=== PATIENT | male | born 1970 | race Caucasian/White ===

== ENCOUNTER 2017-06-07 08:03 | Inpatient (IN) | payer OTHER ==
--- NOTE | 2017-06-07 08:47 | PDOC ---
Attending Attestation - Resident Resident Name: Corey Ferreira - ED Attending Attestation I have performed the following: I have examined & evaluated the patient, The case was reviewed & discussed with the resident, I agree w/resident's findings & plan, Exceptions are as noted - HPI HPI: 06/07/17 08:44 47y M hx of htn, hl asthma presents with complaint of sob. Per girlfriend, the pt has been having fever and cough for about a week with alot of congestion. GF also with similar symptoms last week. Pt endorses worsening sob, and gf finally convinced him to come to the ED today. Pt denies any chest pain, leg swelling, hemoptysis, dizziness, abd pain, n/v. pt arrived with sat of 60% on RA, in mild distress, was started on NRB with improvement to 80%, started on bipap with improvement to 94% (on 04/22, 75% O2). Pts pulm exam noted for scant rales at the bsaes and deminshed breathsounds b/l abd soft notnender ddx includes pna, influenza, ?consier PE, ?underlying lung/heart dz? sepsis orderset initiated cxr continue bipap will reassess 06/07/17 10:52 The pts labs were reviweed - cmp noted for: Laboratory Tests 06/07/17 06/07/17 06/07/17 08:10 08:10 09:30 Sodium 127 L Potassium 3.6 Chloride 94 L Carbon Dioxide 20 L Anion Gap 13 BUN 42 H Creatinine 2.1 H Creat Clearance w eGFR 34.02 Random Glucose 136 H Lactic Acid 2.1 H Calcium 7.2 L Total Bilirubin 1.0 AST 869 H ALT 326 H Alkaline Phosphatase 180 H Ammonia 75.5 H Creatine Kinase 6546 H Creatine Kinase Index 0.0 CK-MB (CK-2) < 1.0 Troponin I 0.06 H Total Protein 7.1 Albumin 2.4 L MICHAEL, elevated LFTs, trop at .06 - ?CHF - awaitqing BNP pt doing well on bipap will obtain cxr to r/o infiltrate as his cxr shows a very large espana - congestion vs. pna pt on abx 06/07/17 12:01 pts bnp wnl unclear etiology - will obtain CTA of chest pt admitted to ICU for further management 06/07/17 16:13 CRITICAL CARE DOCUMENTATION: I spent ~120 minutes of Critical Care time, excluding separately billable procedures, involving high complexity decision making to assess, manipulate and support vital system function(s) to treat single or multiple vital organ system failure and/or to prevent further life threatening deterioration of the patient' s condition. - Medical Decision Making 06/07/17 16:14 pt stable on bipap but quickly desaturates when bipap taken off ct shows ?edema ?ARDS? low threshold for intubation cards/pulm consulted Heart Score/ECG Review - ECG Impressions Comment:: 06/07/17 12:39 Twelve-lead EKG was performed and reviewed by me. There is normal sinus rhythm with a rate of 110 Nonspecific T wave abnormality
[2017-06-07] MEDS ORDERED: SODIUM CHLORIDE 0.9% 1000 ML INFUS.BAG IV ONE ×2 (08:59→10:51)
[2017-06-07 09:07] LABS: ARTERIAL BLD GAS O2 SATURATION 88.1 % (90-98.9); ARTERIAL BLOOD GAS BASE EXCESS -2.7 meq/l (-2-2); ARTERIAL BLOOD GAS PCO2 24.3 mmHg (35-45); ARTERIAL BLOOD GAS PO2 54.8 mmHg (80-100); ARTERIAL BLOOD GAS pH 7.49 (7.35-7.45); CARBOXYHEMOGLOBIN 1.6 gm% (0.5-2.0)
[2017-06-07] MEDS ORDERED: ACETAMINOPHEN 1000 MG/100 ML VIAL (NON FORMULARY) IVPB ONE (09:07)
[2017-06-07 09:08] LABS: BASO % 0.6 % (0-2.0); HEMATOCRIT 40.9 % (35.4-49); HEMOGLOBIN 13.8 GM/dL (11.7-16.9); LYMPH % 7.3 % (8-40); MCH 30.7 pg (25.7-33.7); MCHC 33.6 g/dl (32.0-35.9); MEAN CELL VOLUME 91.3 fl (80-96); MEAN PLT VOLUME 8.2 fl (7.5-11.1); MONO % 7.8 % (3.8-10.2); NEUT % 84.3 % (42.8-82.8); PLATELET COUNT 258 K/MM3 (134-434); RBC 4.48 M/mm3 (4.00-5.60); RDW 13.2 % (11.9-15.9); WHITE BLOOD COUNT 11.4 K/mm3 (4.0-10.0)
[2017-06-07] MEDS ORDERED: ACETAMINOPHEN INJECTION 100 ML IVPB ONE (09:08)
[2017-06-07 09:09] LABS: VENOUS PC02 30.8 mmHg (38-52); VENOUS PH 7.44 (7.32-7.42)
[2017-06-07 09:10] LABS: VENOUS PO2 35.3 mmHg (28-48)
[2017-06-07 09:13] LABS: ALLENS TEST POSITIVE
[2017-06-07 09:35] LABS: INR 1.16 (0.82-1.09); PROTHROMBIN TIME (PATIENT) 13.1 SEC (9.98-11.88)
[2017-06-07 09:38] LABS: ACTIVATED PTT 31.2 SECONDS (26.9-34.4)
[2017-06-07 09:53] LABS: ALBUMIN 2.4 g/dl (3.4-5.0); ANION GAP 13 (8-16); BLOOD UREA NITROGEN 42 mg/dL (7-18); CALCIUM 7.2 mg/dL (8.5-10.1); CHLORIDE 94 mmol/L (98-107); CO2 20 mmol/L (21-32); CREATININE 2.1 mg/dL (0.7-1.3); GLUCOSE,RANDOM 136 mg/dL (74-106); POTASSIUM 3.6 mmol/L (3.5-5.1); SGPT/ALT 326 U/L (12-78); SODIUM 127 mmol/L (136-145); TOT PROT 7.1 g/dl (6.4-8.2)
[2017-06-07] MEDS ORDERED: PIPERACILLIN/TAZOB 4.5 GM/100 ML PRE-DOCKED IVPB ONE (09:59)
[2017-06-07] MEDS ORDERED: VANCOMYCIN 1,000 MG in DEXTROSE 5%-WATER - 250 ML IVPB ONE (09:59)
[2017-06-07 10:05] LABS: ALK PHOS 180 U/L (45-117)
--- NOTE | 2017-06-07 10:11 | PDOC ---
History of Present Illness - General Chief Complaint: Shortness of Breath Stated Complaint: FEVER,DIFFICULTY BREATHING,HIGH BLOOD PRESSURE Time Seen by Provider: 06/07/17 08:24 History Source: Patient Exam Limitations: No Limitations - History of Present Illness Initial Comments: 06/07/17 10:08 The patient is a 47M with a PMH of HTN, asthma, and EtOH abuse who presents to the ED with complaints of "feeling sick". The patient is accompanied with his fiance who is a nurse and providing some of the history. The patient states that he's been coughing for 1 week, has had fevers and chills. The fiance states that the patient has also been delusional and talking to himself. He denies any CP, SOB, nausea, vomiting, myalgias, abdominal pain. The patient drinks 3-4 beers a day and a pint of liquor. He has not had a drink in 8 days since he's been sick. He was seen at an on Thursday (5 days ago) and was given amoxicillin and told to get evaluated in the ER because of his breathing, but he did not until he presented this morning. Past History - Past Medical History Allergies/Adverse Reactions: Allergies Allergy/AdvReac Type Severity Reaction Status Date / Time No Known Allergies Allergy Verified 06/07/17 08:18 Home Medications: Ambulatory Orders Aspirin 81 mg PO DAILY 06/07/17 Atorvastatin Ca [Lipitor] 20 mg PO HS 06/07/17 Benzonatate 200 mg PO DAILY PRN 06/07/17 Chlorthalidone 25 mg PO DAILY 06/07/17 Metoprolol Succinate 25 mg PO DAILY 06/07/17 Paroxetine HCl [Paxil] 20 mg PO DAILY 06/07/17 Simvastatin 40 mg PO HS 06/07/17 Asthma: Yes COPD: No HTN: Yes Other medical history: alcohol abuse - Suicide/Smoking/Psychosocial Hx Smoking History: Current every day smoker Number of Cigarettes Smoked Daily: 20 Information on smoking cessation initiated: No Substance Use Type: Alcohol Review of Systems - Review of Systems Able to Perform ROS?: Yes Comments:: 06/07/17 10:37 GENERAL/CONSTITUTIONAL: Positive for fevers and chills. No weakness. HEAD, EYES, EARS, NOSE AND THROAT: No change in vision. No ear pain or discharge. No sore throat. GASTROINTESTINAL: No nausea, vomiting, diarrhea, constipation, or abdominal pain. GENITOURINARY: No dysuria, frequency, hematuria, or change in urination. CARDIOVASCULAR: No chest pain, palpitations, or lightheadedness. RESPIRATORY: Positive for cough. No wheezing, shortness of breath, or hemoptysis. MUSCULOSKELETAL: Positive for back pain. No joint or muscle swelling or pain. SKIN: No rash or lesions. NEUROLOGIC: No headache, numbness, tingling, weakness, loss of consciousness, or change in strength/sensation. ENDOCRINE: No increased thirst. No abnormal weight change. HEMATOLOGIC/LYMPHATIC: No anemia, easy bleeding, or history of blood clots. ALLERGIC/IMMUNOLOGIC: No hives or skin allergy. Is the patient limited Salvadorean proficient: No *Physical Exam - Vital Signs Last Vital Signs Temp Pulse Resp BP Pulse Ox 102.5 F H 92 H 24 110/73 96 06/07/17 09:05 06/07/17 09:52 06/07/17 09:52 06/07/17 09:52 06/07/17 09:52 - Physical Exam Comments: 06/07/17 10:40 GENERAL: Well developed, well nourished. Awake and alert. No acute distress. HEENT: Normocephalic, atraumatic. Hearing grossly normal. Moist mucous membranes. PERRLA, EOMI. No conjunctival pallor. Sclera are mildly icteric. Oropharynx is clear. NECK: Supple. Full ROM. No JVD. CARDIOVASCULAR: Regular rate and rhythm. No murmurs, rubs, or gallops. PULMONARY: No evidence of respiratory distress. Mild rales in LL lobe. ABDOMINAL: Soft. Non-tender. Non-distended. No rebound or guarding. GENITOURINARY: No CVA tenderness bilaterally. MUSCULOSKELETAL: Normal range of motion at all joints. No bony deformities or tenderness. EXTREMITIES: No cyanosis. No clubbing. No edema. No calf tenderness. SKIN: Warm and dry. Normal capillary refill. No rashes. No jaundice. NEUROLOGICAL: Alert, awake, appropriate. Cranial nerves 2-12 intact. Normal speech. Gait is normal without ataxia. PSYCHIATRIC: Cooperative. Good eye contact. Appropriate mood and affect. ED Treatment Course - LABORATORY CBC & Chemistry Diagram: 06/07/17 08:10 06/07/17 09:30 - ADDITIONAL ORDERS Additional order review: Laboratory Results 06/07/17 06/07/17 06/07/17 09:00 08:20 08:10 PT with INR INR PTT (Actin FS) Puncture Site Left radial ABG pH 7.49 H ABG pCO2 at Pt Temp 24.3 L ABG pO2 at Pt Temp 54.8 L ABG HCO3 18.5 L ABG O2 Sat (Measured) 88.1 L ABG O2 Content 17.8 ABG Base Excess -2.7 L Grant Test Positive VBG pH POC VBG pCO2 POC VBG pO2 Mixed VBG HCO3 Carboxyhemoglobin 1.6 Methemoglobin 0.9 O2 Delivery Device Bipap Oxygen Flow Rate 75% Vent Mode S/t Vent Rate 10 Mechanical Rate Bipap Pressure Support Vent 12/6 Lactic Acid 2.1 H Ammonia Blood Type A POSITIVE Antibody Screen Negative 06/07/17 06/07/17 06/07/17 08:10 08:10 08:10 PT with INR 13.10 H INR 1.16 H PTT (Actin FS) 31.2 Puncture Site ABG pH ABG pCO2 at Pt Temp ABG pO2 at Pt Temp ABG HCO3 ABG O2 Sat (Measured) ABG O2 Content ABG Base Excess Grant Test VBG pH 7.44 H POC VBG pCO2 30.8 L POC VBG pO2 35.3 Mixed VBG HCO3 20.7 Carboxyhemoglobin Methemoglobin O2 Delivery Device Oxygen Flow Rate Vent Mode Vent Rate Mechanical Rate Pressure Support Vent Lactic Acid Ammonia 75.5 H Blood Type Antibody Screen 06/07/17 08:10 RBC 4.48 MCV 91.3 MCHC 33.6 RDW 13.2 MPV 8.2 Neutrophils % 84.3 H Lymphocytes % 7.3 L Monocytes % 7.8 Eosinophils % 0.0 Basophils % 0.6 - RADIOLOGY Radiology Studies Ordered: Category Date Time Status CHEST X-RAY PORTABLE* [RAD] Stat Radiology 06/07/17 08:37 Completed - Medications Given in the ED: ED Medications Discontinued Medications Generic Name Dose Route Start Last Admin Trade Name Freq PRN Reason Stop Dose Admin Acetaminophen 1,000 mg 06/07/17 09:07 06/07/17 09:12 Ofirmev Injection - IVPB 06/07/17 09:08 1,000 mg ONCE ONE Administration Piperacillin Sod/Tazobactam Sod 4.5 gm 06/07/17 09:59 06/07/17 10:06 Zosyn 4.5gm Ivpb (Pre-Docked) IVPB 06/07/17 10:00 4.5 gm ONCE ONE Administration Sodium Chloride 1,000 ml 06/07/17 08:59 06/07/17 09:12 Normal Saline - IV 06/07/17 09:00 1,000 ml ONCE ONE Administration Medical Decision Making - Medical Decision Making 06/07/17 10:41 The patient is a 47M with a PMH of HTN and asthma who presents to the ER with a cough, fever, and back pain. He was found to be hypoxic to 55-60's on RA. I placed the patient on bipap and his saturation improved to the low 90's. The patient also had a fever of 102.5. Septic protocol is being followed. CXR shows congestive changes with questionable infiltrate. I have covered the patient with broad spectrum abx and given 1 g of tylenol for fever control. Patient is tolerating bipap well. Will monitor closely. 06/07/17 10:54 I have endorsed the patient to Dr. José who accepts admission to an ICU bed. Will page Dr. Weeks, machine operator cane cutter. 06/07/17 11:[address] Quezada for ICU admission. He agrees and would like Dr. Rodríguez consulted for ID. Pending CT chest for patient. 06/07/17 14:45 CT chest read: Extensive bilateral upper and lower lung field interstitial and alveolar opacities are noted with a preferential posterior involvement. The CT pattern is more suggestive of interstitial and alveolar edema (cardiogenic versus noncardiogenic) and probably less likely on the basis of pneumonitis. Correlate clinically. Extensive atherosclerotic coronary artery calcifications are seen. Possible mild left ventricular dilatation. Pt is continuing to desaturate off bipap. His fiance is removing his mask to give him water. I have instructed her not to do this as it is compensating his O2 sats. *DC/Admit/Observation/Transfer Diagnosis at time of Disposition: Hypoxia Congestive cardiac failure Qualifiers: Congestive heart failure type: unspecified Congestive heart failure chronicity : unspecified Qualified Code(s): I50.9 - Heart failure, unspecified - Discharge Dispostion Condition at time of disposition: Guarded Admit: Yes - Referrals - Patient Instructions - Post Discharge Activity
[2017-06-07] MEDS ORDERED: PIPERACILLIN/TAZOB 4.5 GM 4.5 GM/100 ML BAG IVPB ONE (10:15)
[2017-06-07 10:29] LABS: SGOT/AST 869 U/L (15-37)
[2017-06-07] MEDS ORDERED: VANCOMYCIN 1 GRAM (PRE-DOCKED) 1,000 MG/250 ML BAG IVPB ONE (10:49)
[2017-06-07 11:42] LABS: N-TERMINAL BNP 107.08 pg/ml (5-125)
[2017-06-07 13:32] LABS: URINE APPEARANCE SLCLOUDY; URINE BILIRUBIN NEGATIVE (NEGATIVE); URINE BLOOD 3+ (NEGATIVE); URINE COLOR YELLOW; URINE GLUCOSE (UA) NEGATIVE (NEGATIVE); URINE KETONE NEGATIVE (NEGATIVE); URINE LEUK ESTERASE NEGATIVE (NEGATIVE); URINE NITRITE NEGATIVE (NEGATIVE); URINE UROBILINOGEN NEGATIVE mg/dL (0.2-1.0)
[2017-06-07 13:39] LABS: URINE PROTEIN 2+ (NEGATIVE)
[2017-06-07 13:44] LABS: URINE HYALINE CAST 1 /lpf; URINE MUCUS RARE
[2017-06-07 14:25] LABS: COCAINE, UR NEGATIVE ng/ml (CUTOFF=300); METHADONE, UR NEGATIVE ng/ml (CUTOFF=300); OPIATES, URI NEGATIVE ng/ml (CUTOFF=300); PHENCYCLIDINE,URINE NEGATIVE ng/ml (CUTOFF=25); URINE AMPHETAMINES NEGATIVE ng/ml (CUTOFF=500); URINE BARBITURATES NEGATIVE ng/ml (CUTOFF=200); URINE BENZODIAZEPINES NEGATIVE ng/ml (CUTOFF=200)
[2017-06-07] MEDS ORDERED: OSELTAMIVIR PHOSPHATE 75 MG CAPSULE PO ONE (15:16)
[2017-06-07] MEDS ORDERED: LEVOFLOXACIN 750 MG IVPB 750 MG/150 ML BAG IVPB ONE (15:21)
--- NOTE | 2017-06-07 15:34 | CONSULT ---
Consult Consult Specialty:: PULM/CCM Referred by:: SURAJ Reason for Consultation:: SOB - History of Present Illness Chief Complaint: SOB History of Present Illness: 47 M, previous ETOH abuse (stopped 1 week ago), active smoker, no IVDU, no clear occupational exposure history. (+) Flu contact -> daughter. Reports never screened for HIV. No apparent travel history. No hemoptysis. Called to the ER due to severe hypoxic acute respiratory failure. Awake and alert on NIPPV. 80% FiO2 with a saturation of 95%. CT: ARDS pattern with areas of consolidation. - History Source History Provided By: Patient Limitations to Obtaining History: Poor Historian - Past Medical History Pulmonary: Yes: Asthma, Sleep Apnea. No: COPD, Pneumonia, Previously Intubated , Pulmonary Embolus - Smoking History Smoking history: Current every day smoker Aproximately how many cigarettes per day: 20 Home Medications - Allergies Allergies/Adverse Reactions: Allergies Allergy/AdvReac Type Severity Reaction Status Date / Time No Known Allergies Allergy Verified 06/07/17 08:18 - Home Medications Home Medications: Ambulatory Orders Aspirin 81 mg PO DAILY 06/07/17 Atorvastatin Ca [Lipitor] 20 mg PO HS 06/07/17 Benzonatate 200 mg PO DAILY PRN 06/07/17 Chlorthalidone 25 mg PO DAILY 06/07/17 Metoprolol Succinate 25 mg PO DAILY 06/07/17 Paroxetine HCl [Paxil] 20 mg PO DAILY 06/07/17 Simvastatin 40 mg PO HS 06/07/17 Review of Systems - Review of Systems Constitutional: reports: Chills, Fever, Malaise, Weakness. denies: Night Sweats , Unintentional Wgt. Loss Eyes: reports: No Symptoms HENT: reports: No Symptoms Neck: reports: No Symptoms Cardiovascular: reports: Shortness of Breath. denies: Chest Pain, Edema, Palpitations Respiratory: reports: Cough, Snoring, SOB, SOB on Exertion, Wheezing. denies: Hemoptysis Gastrointestinal: reports: No Symptoms Genitourinary: reports: No Symptoms Breasts: reports: No Symptoms Reported Musculoskeletal: reports: No Symptoms Integumentary: reports: No Symptoms Neurological: reports: No Symptoms Endocrine: reports: No Symptoms Hematology/Lymphatic: reports: No Symptoms Psychiatric: reports: No Symptoms Physical Exam Vital Signs: Vital Signs Temperature 102.5 F H 06/07/17 09:05 Pulse Rate 77 06/07/17 14:51 Respiratory Rate 22 06/07/17 14:51 Blood Pressure 105/73 06/07/17 14:51 O2 Sat by Pulse Oximetry (%) 100 06/07/17 14:51 Constitutional: Yes: Moderate Distress Eyes: Yes: Conjunctiva Clear, EOM Intact HENT: Yes: Atraumatic, Normocephalic Neck: Yes: Supple, Trachea Midline Cardiovascular: Yes: Tachycardia Respiratory: Yes: Accessory Muscle Use, Cough, On BiPap, Rhonchi, SOB, Tachypnea. No: Stridor, Wheezes Gastrointestinal: Yes: Normal Bowel Sounds, Soft, Abdomen, Obese Renal/: Yes: WNL Musculoskeletal: Yes: WNL Extremities: Yes: WNL Edema: No Peripheral Pulses WNL: Yes Integumentary: Yes: WNL Neurological: Yes: Alert, Oriented ...Motor Strength: WNL Psychiatric: Yes: WNL, Alert, Oriented Labs: CBC, BMP 06/07/17 08:10 06/07/17 09:30 Imaging - Results Chest X-ray: Report Reviewed, Image Reviewed Cat Scan: Report Reviewed, Image Reviewed Problem List - Problems (1) ARDS (adult respiratory distress syndrome) Code(s): J80 - ACUTE RESPIRATORY DISTRESS SYNDROME (2) Acute respiratory failure Code(s): J96.00 - ACUTE RESPIRATORY FAILURE, UNSP W HYPOXIA OR HYPERCAPNIA (3) Rhabdomyolysis Code(s): M62.82 - RHABDOMYOLYSIS (4) Hyponatremia Code(s): E87.1 - HYPO-OSMOLALITY AND HYPONATREMIA (5) Hypoxia Code(s): R09.02 - HYPOXEMIA Assessment/Plan NIPPV settings were adjusted and patient is now more comfortable with a saturation of 95% ABX / Tamiflu per ID Aspiration precautions Judicious IVF so as not to worsen ARDS physiology BD TX D/W and patient low threshold for intubation and mechanical ventilation Strict I&O VTE prophylaxis ICU monitoring Dr Quezada Critical care time spent in reviewing chart, evaluating patient and formulating plan - 36 minutes.
--- NOTE | 2017-06-07 15:42 | CON.ID ---
Consult Consult Specialty:: infectious disease Referred by:: valentine Reason for Consultation:: fever, sob, cough - History of Present Illness Chief Complaint: cough, fever and chills for one week History of Present Illness: 47 year old man presented to Ed with cough, fever, chills for one week his girlfriend and daughter alll had cough and fever they went to [facility] on Thursday his daughter tested positive for influenza and was given tamiflu he and his girlfriend tested negative and were given amox- he has taken two pills eating poorly no diarrhea urinating okay no hemoptysis 6 cig daily no 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 weight loss etoh use- stopped one week ago when he was sick was intermittently confused at home, now more oriented denies hiv/IVDU consents to HIV testing - History Source History Provided By: Patient, Significant Other Limitations to Obtaining History: Clinical Condition - Past Medical History Cardio/Vascular: Yes: HTN, Other (hyperlipidemia) Pulmonary: Yes: Asthma - Past Surgical History Past Surgical History: Yes: None - Alcohol/Substance Use Hx Alcohol Use: Yes (beer and wine) - Smoking History Smoking history: Current every day smoker Have you smoked in the past 12 months: Yes Aproximately how many cigarettes per day: 20 - Social History Usual Living Arrangement: With Significant Other ADL: Independent 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year[place] History of Recent Travel: No Home Medications - Allergies Allergies/Adverse Reactions: Allergies Allergy/AdvReac Type Severity Reaction Status Date / Time No Known Allergies Allergy Verified 06/07/17 08:18 - Home Medications Home Medications: Ambulatory Orders Aspirin 81 mg PO DAILY 06/07/17 Atorvastatin Ca [Lipitor] 20 mg PO HS 06/07/17 Benzonatate 200 mg PO DAILY PRN 06/07/17 Chlorthalidone 25 mg PO DAILY 06/07/17 Metoprolol Succinate 25 mg PO DAILY 06/07/17 Paroxetine HCl [Paxil] 20 mg PO DAILY 06/07/17 Simvastatin 40 mg PO HS 06/07/17 Family Disease History - Family Disease History Family History: Unable to Obtain Review of Systems - Review of Systems Constitutional: reports: Fever, Loss of Appetite, Weakness Eyes: reports: No Symptoms HENT: reports: No Symptoms Neck: reports: No Symptoms Cardiovascular: denies: Chest Pain Respiratory: reports: Cough. denies: Hemoptysis Gastrointestinal: reports: No Symptoms. denies: Abdominal Pain, Diarrhea Genitourinary: denies: Dysuria, Flank Pain Musculoskeletal: reports: No Symptoms Integumentary: reports: No Symptoms Neurological: reports: No Symptoms Physical Exam Vital Signs: Vital Signs Temperature 102.5 F H 06/07/17 09:05 Pulse Rate 77 06/07/17 14:51 Respiratory Rate 22 06/07/17 14:51 Blood Pressure 105/73 06/07/17 14:51 O2 Sat by Pulse Oximetry (%) 100 06/07/17 14:51 Psychiatric: Yes: Alert, Oriented Labs: CBC, BMP 06/07/17 08:10 06/07/17 09:30 Imaging - Results Chest X-ray: Report Reviewed, Image Reviewed Cat Scan: Report Reviewed, Image Reviewed Problem List - Problems (1) Acute respiratory failure Code(s): J96.00 - ACUTE RESPIRATORY FAILURE, UNSP W HYPOXIA OR HYPERCAPNIA (2) Pneumonia Code(s): J18.9 - PNEUMONIA, UNSPECIFIED ORGANISM (3) Hyponatremia Code(s): E87.1 - HYPO-OSMOLALITY AND HYPONATREMIA (4) Rhabdomyolysis Code(s): M62.82 - RHABDOMYOLYSIS (5) Abnormal LFTs Code(s): R94.5 - ABNORMAL RESULTS OF LIVER FUNCTION STUDIES Assessment/Plan impending respiratory failure suspect secondary to Influenza given history from his girlfriend who is a nurse would treat for influenza and bacterial pneumonia vancomycin/levaquin/tamiflu he has hyponatremia and elevated LFTs/rhabdomyolysis will cover for atypical pneumonia as well droplet isolation he consents to HIV testing hiv legionella urinary antigen repeat cmp/cpk vanco trough hep serology d/w student ambassador d/w ER staff d/w cardiology over 45 minutes spent in the care of this critically illl ICU patient
--- NOTE | 2017-06-07 16:05 | EKG ---
Test Reason : Blood Pressure : / mmHG Vent. Rate : 097 BPM Atrial Rate : 097 BPM P-R Int : 166 ms QRS Dur : 080 ms QT Int : 326 ms P-R-T Axes : 025 -01 012 degrees QTc Int : 414 ms NORMAL SINUS RHYTHM MINIMAL VOLTAGE CRITERIA FOR LVH, MAY BE NORMAL VARIANT NONSPECIFIC T WAVE ABNORMALITY ABNORMAL ECG NO PREVIOUS ECGS AVAILABLE Confirmed by Bryan Gurrola ([id number]) on 06/07/2017 4:04:42 PM Referred By: Confirmed By:Bryan Gurrola
[2017-06-07 16:25] LABS: BASO % 0.3 % (0-2.0); HEMATOCRIT 37.1 % (35.4-49); HEMOGLOBIN 12.4 GM/dL (11.7-16.9); LYMPH % 10.7 % (8-40); MCH 31.2 pg (25.7-33.7); MCHC 33.6 g/dl (32.0-35.9); MEAN CELL VOLUME 92.9 fl (80-96); MEAN PLT VOLUME 8.4 fl (7.5-11.1); MONO % 7.7 % (3.8-10.2); NEUT % 81.3 % (42.8-82.8); PLATELET COUNT 220 K/MM3 (134-434); RBC 3.99 M/mm3 (4.00-5.60); RDW 13.4 % (11.9-15.9)
--- NOTE | 2017-06-07 17:12 | CON.CARD ---
Consult Consult Specialty:: cardiology Reason for Consultation:: shortness of breath - History of Present Illness Chief Complaint: markedly short of breath History of Present Illness: 47y M hx of htn, hyperlipidemia, asthma, obesity, substance abuse (cocaine years ago; tobacoo; alcohol--last drink one week ago; ?anaboic steroids) presents with complaint of sob. Per girlfriend, the pt has been having fever and cough for about a week with alot of congestion. GF also with similar symptoms last week. Pt endorses worsening sob, and gf finally convinced him to come to the ED today. One family member is being treated for influenza. Pt denies any chest pain, leg swelling, hemoptysis, dizziness, abd pain, n/v. pt arrived with sat of 60% on RA, in mild distress, was started on NRB with improvement to 80%, started on bipap with improvement to 94% (on 04/22, 75% O2). Pts pulm exam noted for scant rales at the bsaes and deminshed breathsounds b/l abd soft notnender ddx includes pna, influenza, ?consier PE, ?underlying lung/heart dz? sepsis orderset initiated cxr continue bipap - History Source History Provided By: Patient, Family Member, Medical Record Limitations to Obtaining History: Other (pt with Bipap mask; finds it difficult to breathe; agitated) - Past Medical History Cardio/Vascular: Yes: HTN, Other (hyperlipidemia) Pulmonary: Yes: Asthma Renal/: Yes: Renal Inusuff - Past Surgical History Past Surgical History: Yes: None - Alcohol/Substance Use Hx Alcohol Use: Yes (beer and wine) - Smoking History Smoking history: Current every day smoker Have you smoked in the past 12 months: Yes Aproximately how many cigarettes per day: 20 - Social History Usual Living Arrangement: With Significant Other ADL: Independent 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 History of Recent Travel: No Home Medications - Allergies Allergies/Adverse Reactions: Allergies Allergy/AdvReac Type Severity Reaction Status Date / Time No Known Allergies Allergy Verified 06/07/17 08:18 - Home Medications Home Medications: Ambulatory Orders Aspirin 81 mg PO DAILY 06/07/17 Atorvastatin Ca [Lipitor] 20 mg PO HS 06/07/17 Benzonatate 200 mg PO DAILY PRN 06/07/17 Chlorthalidone 25 mg PO DAILY 06/07/17 Metoprolol Succinate 25 mg PO DAILY 06/07/17 Paroxetine HCl [Paxil] 20 mg PO DAILY 06/07/17 Simvastatin 40 mg PO HS 06/07/17 Family Disease History - Family Disease History Family Disease History: Heart Disease: Father ( of "heart problems" age 47) Review of Systems - Review of Systems Constitutional: reports: Fever, Other Eyes: reports: No Symptoms HENT: reports: No Symptoms Neck: reports: No Symptoms Cardiovascular: reports: Shortness of Breath Respiratory: reports: Cough, SOB Gastrointestinal: reports: No Symptoms Breasts: reports: No Symptoms Reported Musculoskeletal: denies: Muscle Pain Integumentary: reports: No Symptoms Neurological: reports: No Symptoms Endocrine: reports: No Symptoms Hematology/Lymphatic: reports: No Symptoms Psychiatric: reports: No Symptoms - Risk Factors Known Risk Factors: Yes: Age, Family History, Gender, Hypercholesterolemia, Other (obesity; substance abuse) Vital Signs: Vital Signs Temperature 102.5 F H 06/07/17 09:05 Pulse Rate 77 06/07/17 14:51 Respiratory Rate 22 06/07/17 14:51 Blood Pressure 105/73 06/07/17 14:51 O2 Sat by Pulse Oximetry (%) 100 06/07/17 14:51 Constitutional: Yes: Anxious, Moderate Distress Eyes: Yes: WNL HENT: Yes: WNL Neck: Yes: WNL Respiratory: Yes: Cough, On BiPap, Poor Air Entry, SOB, Tachypnea Gastrointestinal: Yes: Soft, Abdomen, Obese Renal/: No: Anuria Cardiovascular: Yes: Tachycardia JVD: No Carotid Bruit: No PMI: Displaced Heart Sounds: Yes: S1, S2, S4 Edema: No Peripheral Pulses WNL: Yes Integumentary: Yes: WNL Neurological: Yes: WNL Psychiatric: Yes: WNL - Other Data Labs, Other Data: CBC, BMP 06/07/17 15:44 INR, PTT INR 1.16 (0.82-1.09) H 06/07/17 08:10 Troponin, BNP 06/07/17 09:30 Troponin I 0.06 H B-Natriuretic Peptide 107.08 Troponin, BNP 06/07/17 09:30 Troponin I 0.06 H B-Natriuretic Peptide 107.08 Abnormal Lab Results 06/07/17 06/07/17 06/07/17 08:10 08:10 08:10 WBC 11.4 H RBC Neutrophils % 84.3 H Lymphocytes % 7.3 L PT with INR 13.10 H INR 1.16 H ABG pH ABG pCO2 at Pt Temp ABG pO2 at Pt Temp ABG HCO3 ABG O2 Sat (Measured) ABG Base Excess VBG pH 7.44 H POC VBG pCO2 30.8 L Sodium Chloride Carbon Dioxide BUN Creatinine Random Glucose Lactic Acid Calcium AST ALT Alkaline Phosphatase Ammonia Creatine Kinase Troponin I Albumin Urine Protein Urine Blood 06/07/17 06/07/17 06/07/17 08:10 08:10 09:00 WBC RBC Neutrophils % Lymphocytes % PT with INR INR ABG pH 7.49 H ABG pCO2 at Pt Temp 24.3 L ABG pO2 at Pt Temp 54.8 L ABG HCO3 18.5 L ABG O2 Sat (Measured) 88.1 L ABG Base Excess -2.7 L VBG pH POC VBG pCO2 Sodium Chloride Carbon Dioxide BUN Creatinine Random Glucose Lactic Acid 2.1 H Calcium AST ALT Alkaline Phosphatase Ammonia 75.5 H Creatine Kinase Troponin I Albumin Urine Protein Urine Blood 06/07/17 06/07/17 06/07/17 09:30 13:20 15:44 WBC 11.0 H RBC 3.99 L Neutrophils % Lymphocytes % PT with INR INR ABG pH ABG pCO2 at Pt Temp ABG pO2 at Pt Temp ABG HCO3 ABG O2 Sat (Measured) ABG Base Excess VBG pH POC VBG pCO2 Sodium 127 L Chloride 94 L Carbon Dioxide 20 L BUN 42 H Creatinine 2.1 H Random Glucose 136 H Lactic Acid Calcium 7.2 L AST 869 H ALT 326 H Alkaline Phosphatase 180 H Ammonia Creatine Kinase 6546 H Troponin I 0.06 H Albumin 2.4 L Urine Protein 2+ H Urine Blood 3+ H Imaging - Results Cat Scan: Image Reviewed EKG: Image Reviewed (sinus tachycardia) Problem List - Problems (1) Substance abuse Assessment/Plan: as per pt's PMD (Dr. Mayo), pt may have, in years past, used cocaine. He drinks heavily at times, is a daily cigarettes smoker. 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 He has been noncompliant to doctors' visits and medications. Code(s): F19.10 - OTHER PSYCHOACTIVE SUBSTANCE ABUSE, UNCOMPLICATED (2) ARDS (adult respiratory distress syndrome) Assessment/Plan: On Bipap, with improvement in O2 sat from 60& to 94%. On Tamiflu for presumed influenza. ECHO for LVEF, chamber sizes, valve status. Code(s): J80 - ACUTE RESPIRATORY DISTRESS SYNDROME (3) Hyponatremia Code(s): E87.1 - HYPO-OSMOLALITY AND HYPONATREMIA (4) Rhabdomyolysis Assessment/Plan: r/o rhabdomyolysis Pt received fluids, but problematic given state of lungs. F/u CK, BUN/Cr, Is and Os, weight serially. Code(s): M62.82 - RHABDOMYOLYSIS (5) Obesity Code(s): E66.9 - OBESITY, UNSPECIFIED (6) Congestive cardiac failure Assessment/Plan: Enlarged heart with ?LV dilation on CT chest. BNP 107; For ECHO (LVEF; chamber sizes; wall motion; valve status. Extensive coronary artery calcifications on CT chest, with multiple cardiac risks, including his father dying at 47 yrs old of "heart disease"; will require coronary artery evaluation with stress test and/or angiogram when stable. TNI 0.06; f/u serially. F/u TSH; lipids. Code(s): I50.9 - HEART FAILURE, UNSPECIFIED Qualifiers: Congestive heart failure type: unspecified Congestive heart failure chronicity: unspecified Qualified Code(s): I50.9 - Heart failure, unspecified (7) Cigarette nicotine dependence Assessment/Plan: Pt has not smoked for a week; consider aid with patch or pill. Code(s): F17.210 - NICOTINE DEPENDENCE, CIGARETTES, UNCOMPLICATED (8) [place] cardiac risk >20% in next 10 years Assessment/Plan: Coronary artery evaluation with stress MIBI and/or coronary angiogram when stable. Aggressive lipid control; diet change to heart-healthy one, with weight loss; BP control; treatment for substance abuse (including alcohol). Code(s): Z91.89 - OTH PERSONAL RISK FACTORS, NOT ELSEWHERE CLASSIFIED (9) Hyperglycemia Assessment/Plan: f/u fasting glucose, HGBA1c. Code(s): R73.9 - HYPERGLYCEMIA, UNSPECIFIED (10) Renal insufficiency Assessment/Plan: on fluids (problematic with pulmonary status). Code(s): N28.9 - DISORDER OF KIDNEY AND URETER, UNSPECIFIED
[2017-06-07 17:24] LABS: ANION GAP 10 (8-16); BILIRUBIN,TOTAL 0.8 mg/dL (0.2-1.0); BLOOD UREA NITROGEN 40 mg/dL (7-18); CHLORIDE 101 mmol/L (98-107); CO2 23 mmol/L (21-32); CREATININE 1.9 mg/dL (0.7-1.3); GLUCOSE,RANDOM 107 mg/dL (74-106); POTASSIUM 3.7 mmol/L (3.5-5.1); SGPT/ALT 249 U/L (12-78); SODIUM 134 mmol/L (136-145)
[2017-06-07 17:37] LABS: ALK PHOS 153 U/L (45-117); SGOT/AST 625 U/L (15-37)
[2017-06-07 17:38] LABS: CALCIUM 6.9 mg/dL (8.5-10.1)
--- NOTE | 2017-06-07 19:01 | HP ---
Admitting History and Physical - Admission Chief Complaint: not feeling well / coughing / History of Present Illness: The patient is a 47M with a PMH of HTN, asthma, and EtOH abuse who presents to the ED with complaints of "feeling sick". The patient is accompanied with his fiance who is a nurse and providing some of the history. The patient states that he's been coughing for 1 week, has had fevers and chills. The fiance states that the patient has also been delusional and talking to himself. He denies any CP, SOB, nausea, vomiting, myalgias, abdominal pain. The patient drinks 3-4 beers a day and a pint of liquor. He has not had a drink in 8 days since he's been sick. He was seen at an on Thursday (5 days ago) and was given amoxicillin and told to get evaluated in the ER because of his breathing, but he did not until he presented this morning. 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 History of Recent Travel: No Home Medications - Allergies Allergies/Adverse Reactions: Allergies Allergy/AdvReac Type Severity Reaction Status Date / Time No Known Allergies Allergy Verified 06/07/17 08:18 - Home Medications Home Medications: Ambulatory Orders Aspirin 81 mg PO DAILY 06/07/17 Atorvastatin Ca [Lipitor] 20 mg PO HS 06/07/17 Benzonatate 200 mg PO DAILY PRN 06/07/17 Chlorthalidone 25 mg PO DAILY 06/07/17 Metoprolol Succinate 25 mg PO DAILY 06/07/17 Paroxetine HCl [Paxil] 20 mg PO DAILY 06/07/17 Simvastatin 40 mg PO HS 06/07/17 Family Disease History - Family Disease History Family Disease History: Heart Disease: Father ( of "heart problems" age 47) Physical Examination Vital Signs: Vital Signs Temperature 102.5 F H 06/07/17 09:05 Pulse Rate 77 06/07/17 14:51 Respiratory Rate 22 01/21/18 14:51 Blood Pressure 105/73 06/07/17 14:51 O2 Sat by Pulse Oximetry (%) 94 L 06/07/17 18:32 Constitutional: Yes: Well Nourished, Anxious Eyes: Yes: Conjunctiva Clear, EOM Intact HENT: Yes: Atraumatic, Normocephalic Neck: Yes: Supple, Trachea Midline Cardiovascular: Yes: Regular Rate and Rhythm Respiratory: Yes: CTA Bilaterally. No: Other (Wearing Bipap Fio2 80 with 98%) Gastrointestinal: Yes: Normal Bowel Sounds, Soft Renal/: Yes: WNL Breast(s): Yes: WNL Musculoskeletal: Yes: WNL Extremities: Yes: WNL Edema: No Peripheral Pulses WNL: Yes Peripheral Pulses: Left Radial: 2+, Right Radial: 2+, Left Doralis Pedis: 2+, Right Dorsalis Pedis: 2+, Left Femoral: 2+, Right Femoral: 2+ Integumentary: Yes: WNL Neurological: Yes: WNL, Alert, Oriented ...Motor Strength: WNL Psychiatric: Yes: Alert, Oriented Labs: CBC, BMP 06/07/17 15:44 06/07/17 15:44 Problem List - Problems (1) ARDS (adult respiratory distress syndrome) Assessment/Plan: bipap keep O2 sat >90% FiO2 @80% pulmonary consult ICU care ID consult emperic tx Isolation Code(s): J80 - ACUTE RESPIRATORY DISTRESS SYNDROME (2) Rhabdomyolysis Assessment/Plan: IV fluids follow labs Code(s): M62.82 - RHABDOMYOLYSIS (3) Abnormal LFTs Assessment/Plan: hx of ETOH will repeat in am if persist GI consult U tox / ETOH level negative last drink 8 days ago Code(s): R94.5 - ABNORMAL RESULTS OF LIVER FUNCTION STUDIES (4) Acute respiratory failure Assessment/Plan: ctof chest c/w ARDS bipap Code(s): J96.00 - ACUTE RESPIRATORY FAILURE, UNSP W HYPOXIA OR HYPERCAPNIA (5) Hypoxia Assessment/Plan: bipap Code(s): R09.02 - HYPOXEMIA (6) Obesity Code(s): E66.9 - OBESITY, UNSPECIFIED (7) Pneumonia Code(s): J18.9 - PNEUMONIA, UNSPECIFIED ORGANISM (8) Substance abuse Code(s): F19.10 - OTHER PSYCHOACTIVE SUBSTANCE ABUSE, UNCOMPLICATED
[2017-06-07] MEDS: LEVOFLOXACIN 750 MG IVPB 750 MG/150 ML BAG IVPB SCH (19:25)
[2017-06-07 20:16] VITALS: BMI 32.4
[2017-06-07] MEDS ORDERED: ACETAMINOPHEN 500 MG TABLET (FP) PO PRN (20:21)
[2017-06-07] MEDS ORDERED: PNEUMOC 13-VAL CONJ-DIP CRM/PF 0.5 ML DISP.SYRIN IM ONE (20:30)
[2017-06-07] MEDS: ACETAMINOPHEN 1000 MG/100 ML VIAL (NON FORMULARY) IVPB PRN (20:36)
[2017-06-07] MEDS: VANCOMYCIN 1,250 MG in DEXTROSE 5%-WATER - 250 ML IVPB SCH (21:33)
[2017-06-07] MEDS: OSELTAMIVIR PHOSPHATE 75 MG CAPSULE PO SCH (22:08)
[2017-06-07] MEDS: MUPIROCIN 2% TOPICAL OINTMENT FOR DECOLONIZATION NS SCH (22:08)
[2017-06-07] MEDS: CHLORHEXIDINE GLUCONATE 4% CLEANSER FOR DECOLONIZATION TP SCH (22:09)
[2017-06-08 06:30] LABS: HEMATOCRIT 39.2 % (35.4-49); HEMOGLOBIN 13.2 GM/dL (11.7-16.9); MCH 31.2 pg (25.7-33.7); MCHC 33.6 g/dl (32.0-35.9); MEAN CELL VOLUME 92.9 fl (80-96); MEAN PLT VOLUME 8.5 fl (7.5-11.1); PLATELET COUNT 251 K/MM3 (134-434); RBC 4.22 M/mm3 (4.00-5.60); RDW 13.2 % (11.9-15.9); WHITE BLOOD COUNT 13.3 K/mm3 (4.0-10.0)
[2017-06-08 06:58] LABS: CHLORIDE 105 mmol/L (98-107); POTASSIUM 3.7 mmol/L (3.5-5.1); SODIUM 137 mmol/L (136-145)
[2017-06-08 07:03] LABS: ALBUMIN 2.1 g/dl (3.4-5.0); ALK PHOS 163 U/L (45-117); ANION GAP 11 (8-16); BILIRUBIN,TOTAL 0.8 mg/dL (0.2-1.0); BLOOD UREA NITROGEN 29 mg/dL (7-18); CALCIUM 7.3 mg/dL (8.5-10.1); CO2 21 mmol/L (21-32); CREATININE 1.3 mg/dL (0.7-1.3); GLUCOSE,RANDOM 96 mg/dL (74-106); MAGNESIUM 2.8 mg/dL (1.8-2.4); PHOSPHOROUS 2.8 mg/dL (2.5-4.9); SGPT/ALT 227 U/L (12-78); TOT PROT 6.7 g/dl (6.4-8.2)
--- NOTE | 2017-06-08 07:05 | PN ---
Progress Note, Physician Chief Complaint: ID Apparently takes of his BIPAP O2 and I see he desaturated to the 80s His fever seems resolved He is couphing a dry couph - Current Medication List Current Medications: Active Medications Acetaminophen (Ofirmev Injection -) 1,000 mg IVPB Q6H PRN PRN Reason: FEVER Last Admin: 06/07/17 20:36 Dose: 1,000 mg Chlorhexidine Gluconate (Hibiclens For Decolonization -) 1 applic TP HS [facility] Last Admin: 06/07/17 22:09 Dose: 1 applic Vancomycin HCl 1,250 mg/ (Dextrose) 250 mls @ 166.667 mls/hr IVPB Q12H JESE PRN Reason: Protocol Last Admin: 06/07/17 21:33 Dose: 166.667 mls/hr Levofloxacin (Levaquin 750 Mg Premixed Ivpb -) 750 mg in 150 mls @ 150 mls/hr IVPB Q24H JESE Last Admin: 06/07/17 19:25 Dose: Not Given Mupirocin (Bactroban Ointment (For Decolonization) -) 1 applic NS BID [facility] Stop: 06/12/17 21:59 Last Admin: 06/07/17 22:08 Dose: 1 applic Oseltamivir Phosphate (Tamiflu -) 75 mg PO BID [facility] Stop: 06/12/17 21:59 Last Admin: 06/07/17 22:08 Dose: 75 mg - Objective Vital Signs: Vital Signs Temperature 98.9 F 06/08/17 06:00 Pulse Rate 85 06/08/17 06:00 Respiratory Rate 25 H 06/08/17 06:00 Blood Pressure 126/86 06/08/17 06:00 O2 Sat by Pulse Oximetry (%) 94 L 06/08/17 05:00 Constitutional: Yes: Moderate Distress HENT: Yes: WNL, Atraumatic Neck: Yes: WNL, Supple Cardiovascular: Yes: Regular Rate and Rhythm, S1, S2 Respiratory: Yes: WNL, Regular, CTA Bilaterally, Wheezes. No: Rales, Rhonchi Gastrointestinal: Yes: WNL, Normal Bowel Sounds. No: Tenderness, Tenderness, Rebound Extremities: No: Cold, Cool, Cyanosis Edema: No Labs: CBC, BMP 06/08/17 05:22 INR, PTT INR 1.16 (0.82-1.09) H 06/07/17 08:10 Problem List - Problems (1) Viral syndrome Code(s): B34.9 - VIRAL INFECTION, UNSPECIFIED (2) ARDS (adult respiratory distress syndrome) Code(s): J80 - ACUTE RESPIRATORY DISTRESS SYNDROME (3) Acute respiratory failure Code(s): J96.00 - ACUTE RESPIRATORY FAILURE, UNSP W HYPOXIA OR HYPERCAPNIA (4) Acute kidney injury Code(s): N17.9 - ACUTE KIDNEY FAILURE, UNSPECIFIED (5) Rhabdomyolysis Code(s): M62.82 - RHABDOMYOLYSIS Assessment/Plan Laboratory Tests 06/07/17 06/07/17 06/07/17 09:00 09:30 13:20 WBC Hgb Plt Count ABG pH 7.49 H ABG pCO2 at Pt Temp 24.3 L ABG pO2 at Pt Temp 54.8 L Oxygen Flow Rate 75% Creat Clearance w eGFR AST ALT Alkaline Phosphatase Creatine Kinase CK-MB (CK-2) Troponin I 0.06 H Methadone Screen Negative Barbiturate Screen Negative MDMA (Ecstasy) Screen Negative Cocaine Screen Negative U Marijuana (THC) Screen Negative Alcohol, Quantitative HIV 1&2 Antibody Screen HIV P24 Antigen 06/07/17 06/07/17 06/07/17 14:25 15:44 15:44 WBC Hgb Plt Count ABG pH ABG pCO2 at Pt Temp ABG pO2 at Pt Temp Oxygen Flow Rate Creat Clearance w eGFR 38.19 AST 625 H D ALT 249 H D Alkaline Phosphatase 153 H Creatine Kinase 5509 H CK-MB (CK-2) 2.318 Troponin I Methadone Screen Barbiturate Screen MDMA (Ecstasy) Screen Cocaine Screen U Marijuana (THC) Screen Alcohol, Quantitative < 5.0 HIV 1&2 Antibody Screen Negative HIV P24 Antigen Negative 06/08/17 05:22 WBC 13.3 H Hgb 13.2 Plt Count 251 ABG pH ABG pCO2 at Pt Temp ABG pO2 at Pt Temp Oxygen Flow Rate Creat Clearance w eGFR AST ALT Alkaline Phosphatase Creatine Kinase CK-MB (CK-2) Troponin I Methadone Screen Barbiturate Screen MDMA (Ecstasy) Screen Cocaine Screen U Marijuana (THC) Screen Alcohol, Quantitative HIV 1&2 Antibody Screen HIV P24 Antigen Assessment Acute respiratory failure ARDS Clinically not in congestive heart failure Viral syndrome Influenza considered and treated but any virus could do this Rhadomyolysis Elevated LFTs ? viral hepatitis Acute kidney injury Plan Pending blood cultures current meds Vanco and Levoflox Moniter renal function Respiratory status tenous especially as he removes his O2 May need intubation RSV antigen Critical care time spent 36 minutes ( maintained on isolation )
[2017-06-08 07:22] LABS: SGOT/AST 500 U/L (15-37)
[2017-06-08] MEDS: ACETAMINOPHEN 1000 MG/100 ML VIAL (NON FORMULARY) IVPB PRN ×2 (08:18→18:15)
--- NOTE | 2017-06-08 08:31 | PN ---
Progress Note, Physician History of Present Illness: 47y M hx of htn, hyperlipidemia, asthma, obesity, substance abuse (cocaine years ago; tobacoo; alcohol--last drink one week ago; ?anaboic steroids) presents with complaint of sob. Per girlfriend, the pt has been having fever and cough for about a week with alot of congestion. GF also with similar symptoms last week. Pt endorses worsening sob, and gf finally convinced him to come to the ED today. One family member is being treated for influenza. Pt denies any chest pain, leg swelling, hemoptysis, dizziness, abd pain, n/v. pt arrived with sat of 60% on RA, in mild distress, was started on NRB with improvement to 80%, started on bipap with improvement to 94% (on 04/22, 75% O2). Pts pulm exam noted for scant rales at the bsaes and deminshed breathsounds b/l abd soft notnender ddx includes pna, influenza, ?[place]ier PE, ?underlying lung/heart dz? sepsis orderset initiated cxr continue bipap - Current Medication List Current Medications: Active Medications Acetaminophen (Ofirmev Injection -) 1,000 mg IVPB Q6H PRN PRN Reason: FEVER Last Admin: 06/08/17 08:18 Dose: 1,000 mg Chlorhexidine Gluconate (Hibiclens For Decolonization -) 1 applic TP HS [facility] Last Admin: 06/07/17 22:09 Dose: 1 applic Vancomycin HCl 1,250 mg/ (Dextrose) 250 mls @ 166.667 mls/hr IVPB Q12H JESE PRN Reason: Protocol Last Admin: 06/07/17 21:33 Dose: 166.667 mls/hr Levofloxacin (Levaquin 750 Mg Premixed Ivpb -) 750 mg in 150 mls @ 150 mls/hr IVPB Q24H [facility] Last Admin: 06/07/17 19:25 Dose: Not Given Mupirocin (Bactroban Ointment (For Decolonization) -) 1 applic NS BID [facility] Stop: 06/12/17 21:59 Last Admin: 06/07/17 22:08 Dose: 1 applic Oseltamivir Phosphate (Tamiflu -) 75 mg PO BID [facility] Stop: 06/12/17 21:59 Last Admin: 06/07/17 22:08 Dose: 75 mg - Objective Vital Signs: Vital Signs Temperature 98.9 F 06/08/17 06:00 Pulse Rate 85 06/08/17 06:00 Respiratory Rate 25 H 06/08/17 06:00 Blood Pressure 126/86 06/08/17 06:00 O2 Sat by Pulse Oximetry (%) 95 06/08/17 07:53 Labs: CBC, BMP 06/08/17 05:22 06/08/17 05:22 INR, PTT INR 1.16 (0.82-1.09) H 06/07/17 08:10 Assessment/Plan - Problems (1) Substance abuse Assessment/Plan: as per pt's PMD (Dr. Mayo), pt may have, in years past, used cocaine. He drinks heavily at times, is a daily cigarettes smoker. 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 He has been noncompliant to doctors' visits and medications. Code(s): F19.10 - OTHER PSYCHOACTIVE SUBSTANCE ABUSE, UNCOMPLICATED (2) ARDS (adult respiratory distress syndrome) Assessment/Plan: On Bipap, with improvement in O2 sat from 60& to 94%. On Tamiflu for presumed influenza. ECHO for LVEF, chamber sizes, valve status. Code(s): J80 - ACUTE RESPIRATORY DISTRESS SYNDROME (3) Hyponatremia Code(s): E87.1 - HYPO-OSMOLALITY AND HYPONATREMIA (4) Rhabdomyolysis Assessment/Plan: r/o rhabdomyolysis Pt received fluids, but problematic given state of lungs. F/u CK, BUN/Cr, Is and Os, weight serially. Code(s): M62.82 - RHABDOMYOLYSIS (5) Obesity Code(s): E66.9 - OBESITY, UNSPECIFIED (6) Congestive cardiac failure Assessment/Plan: Enlarged heart with ?LV dilation on CT chest. BNP 107; echo nl ef nl valves Extensive coronary artery calcifications on CT chest, with multiple cardiac risks, including his father dying at 47 yrs old of "heart disease"; will require coronary artery evaluation with stress test and/or angiogram when stable. TNI 0.06; f/u serially. F/u TSH; lipids. Code(s): I50.9 - HEART FAILURE, UNSPECIFIED Qualifiers: Congestive heart failure type: unspecified Congestive heart failure chronicity: unspecified Qualified Code(s): I50.9 - Heart failure, unspecified (7) Cigarette nicotine dependence Assessment/Plan: Pt has not smoked for a week; consider aid with patch or pill. Code(s): F17.210 - NICOTINE DEPENDENCE, CIGARETTES, UNCOMPLICATED (8) [place] cardiac risk >20% in next 10 years Assessment/Plan: Coronary artery evaluation with stress MIBI and/or coronary angiogram when stable. Aggressive lipid control; diet change to heart-healthy one, with weight loss; BP control; treatment for substance abuse (including alcohol). Code(s): Z91.89 - OTH PERSONAL RISK FACTORS, NOT ELSEWHERE CLASSIFIED (9) Hyperglycemia Assessment/Plan: f/u fasting glucose, HGBA1c. Code(s): R73.9 - HYPERGLYCEMIA, UNSPECIFIED (10) Renal insufficiency Assessment/Plan: on fluids (problematic with pulmonary status). Code(s): N28.9 - DISORDER OF KIDNEY AND URETER, UNSPECIFIED cc time spent 36 min
[2017-06-08] MEDS ORDERED: PT OWN MED DRAWER 7, Y5N ONE ×2 (09:15→21:21)
[2017-06-08] MEDS: MUPIROCIN 2% TOPICAL OINTMENT FOR DECOLONIZATION NS SCH ×2 (09:25→21:43)
[2017-06-08] MEDS: OSELTAMIVIR PHOSPHATE 75 MG CAPSULE PO SCH ×2 (09:25→21:57)
[2017-06-08] MEDS: VANCOMYCIN 1,250 MG in DEXTROSE 5%-WATER - 250 ML IVPB SCH ×2 (11:04→21:43)
--- NOTE | 2017-06-08 12:04 | PN ---
Teaching Attending Note Name of Resident: Eren Alvarez ATTENDING PHYSICIAN STATEMENT I saw and evaluated the patient. I reviewed the resident's note and discussed the case with the resident. I agree with the resident's findings and plan as documented. SUBJECTIVE: Patient seen and examined in the ICU. Awake and alert on NIPPV. No pressors. Clinically WOB is less today. No hemoptysis. Rapid desaturation once off NIPPV. CXR: slightly improved Intake & Output 06/05/17 06/06/17 06/07/17 06/08/17 23:59 23:59 23:59 23:59 Intake Total 1800 Output Total 2400 1500 Balance -600 -1500 Weight 201 lb 3 oz 201 lb 4.8 oz Last Vital Signs Temp Pulse Resp BP Pulse Ox 99.1 F 88 26 H 111/77 96 06/08/17 10:00 06/08/17 10:00 06/08/17 10:00 06/08/17 10:00 06/08/17 09:00 Active Medications Acetaminophen (Ofirmev Injection -) 1,000 mg IVPB Q6H PRN PRN Reason: FEVER Last Admin: 06/08/17 08:18 Dose: 1,000 mg Chlorhexidine Gluconate (Hibiclens For Decolonization -) 1 applic TP HS [facility] Last Admin: 06/07/17 22:09 Dose: 1 applic Vancomycin HCl 1,250 mg/ (Dextrose) 250 mls @ 166.667 mls/hr IVPB Q12H JESE PRN Reason: Protocol Last Admin: 06/08/17 11:04 Dose: 166.667 mls/hr Levofloxacin (Levaquin 750 Mg Premixed Ivpb -) 750 mg in 150 mls @ 150 mls/hr IVPB Q24H [facility] Last Admin: 06/07/17 19:25 Dose: Not Given Mupirocin (Bactroban Ointment (For Decolonization) -) 1 applic NS BID [facility] Stop: 06/12/17 21:59 Last Admin: 06/08/17 09:25 Dose: 1 applic Oseltamivir Phosphate (Tamiflu -) 75 mg PO BID [facility] Stop: 06/12/17 21:59 Last Admin: 06/08/17 09:25 Dose: 75 mg Constitutional: Yes: Awake and alert on NIPPV, Mildly tachypneic at rest Eyes: Yes: Conjunctiva Clear, EOM Intact HENT: Yes: Atraumatic, Normocephalic Neck: Yes: Supple, Trachea Midline Cardiovascular: Yes: Tachycardia Respiratory: Yes: less accessory muscle use, Cough, On NIPPV, Rhonchi, SOB, Tachypnea. No: Stridor, Wheezes Gastrointestinal: Yes: Normal Bowel Sounds, Soft, Abdomen, Obese Renal/: Yes: WNL Musculoskeletal: Yes: WNL Extremities: Yes: WNL Edema: No Peripheral Pulses WNL: Yes Integumentary: Yes: WNL Neurological: Yes: Alert, Oriented ...Motor Strength: WNL Psychiatric: Yes: WNL, Alert, Oriented Labs: Laboratory Results - last 24 hr 06/07/17 06/07/17 06/07/17 08:10 08:10 13:15 WBC RBC Hgb Hct MCV MCH MCHC RDW Plt Count MPV Neutrophils % Lymphocytes % Monocytes % Eosinophils % Basophils % VBG pH 7.44 H POC VBG pCO2 30.8 L POC VBG pO2 35.3 Mixed VBG HCO3 20.7 Sodium Potassium Chloride Carbon Dioxide Anion Gap BUN Creatinine Creat Clearance w eGFR Random Glucose Lactic Acid 2.1 H 1.7 Calcium Phosphorus Magnesium Total Bilirubin AST ALT Alkaline Phosphatase Creatine Kinase Creatine Kinase Index CK-MB (CK-2) Total Protein Albumin Urine Color Urine Appearance Urine pH Ur Specific [place] Urine Protein Urine Glucose (UA) Urine Ketones Urine Blood Urine Nitrite Urine Bilirubin Urine Urobilinogen Ur Leukocyte Esterase Urine WBC (Auto) Urine RBC (Auto) Hyaline Casts Urine Mucus Random Vancomycin Opiates Screen Methadone Screen Barbiturate Screen Phencyclidine Screen Ur Amphetamines Screen MDMA (Ecstasy) Screen Benzodiazepines Screen Cocaine Screen U Marijuana (THC) Screen Alcohol, Quantitative HIV 1&2 Antibody Screen HIV P24 Antigen 06/07/17 06/07/17 06/07/17 13:20 13:20 14:25 WBC RBC Hgb Hct MCV MCH MCHC RDW Plt Count MPV Neutrophils % Lymphocytes % Monocytes % Eosinophils % Basophils % VBG pH POC VBG pCO2 POC VBG pO2 Mixed VBG HCO3 Sodium Potassium Chloride Carbon Dioxide Anion Gap BUN Creatinine Creat Clearance w eGFR Random Glucose Lactic Acid Calcium Phosphorus Magnesium Total Bilirubin AST ALT Alkaline Phosphatase Creatine Kinase Creatine Kinase Index CK-MB (CK-2) Total Protein Albumin Urine Color Yellow Urine Appearance Slcloudy Urine pH 5.0 Ur Specific [place] 1.010 Urine Protein 2+ H Urine Glucose (UA) Negative Urine Ketones Negative Urine Blood 3+ H Urine Nitrite Negative Urine Bilirubin Negative Urine Urobilinogen Negative Ur Leukocyte Esterase Negative Urine WBC (Auto) None Urine RBC (Auto) 1 Hyaline Casts 1 Urine Mucus Rare Random Vancomycin Opiates Screen Negative Methadone Screen Negative Barbiturate Screen Negative Phencyclidine Screen Negative Ur Amphetamines Screen Negative MDMA (Ecstasy) Screen Negative Benzodiazepines Screen Negative Cocaine Screen Negative U Marijuana (THC) Screen Negative Alcohol, Quantitative < 5.0 HIV 1&2 Antibody Screen HIV P24 Antigen 06/07/17 06/07/17 06/07/17 15:44 15:44 15:44 WBC RBC Hgb Hct MCV MCH MCHC RDW Plt Count MPV Neutrophils % Lymphocytes % Monocytes % Eosinophils % Basophils % VBG pH POC VBG pCO2 POC VBG pO2 Mixed VBG HCO3 Sodium 134 L Potassium 3.7 Chloride 101 Carbon Dioxide 23 Anion Gap 10 BUN 40 H Creatinine 1.9 H Creat Clearance w eGFR 38.19 Random Glucose 107 H D Lactic Acid Calcium 6.9 L* Phosphorus Magnesium Total Bilirubin 0.8 AST 625 H D ALT 249 H D Alkaline Phosphatase 153 H Creatine Kinase 5509 H Creatine Kinase Index 0.1 CK-MB (CK-2) 2.318 Total Protein 6.0 L Albumin 2.0 L Urine Color Urine Appearance Urine pH Ur Specific [place] Urine Protein Urine Glucose (UA) Urine Ketones Urine Blood Urine Nitrite Urine Bilirubin Urine Urobilinogen Ur Leukocyte Esterase Urine WBC (Auto) Urine RBC (Auto) Hyaline Casts Urine Mucus Random Vancomycin 12.531 Opiates Screen Methadone Screen Barbiturate Screen Phencyclidine Screen Ur Amphetamines Screen MDMA (Ecstasy) Screen Benzodiazepines Screen Cocaine Screen U Marijuana (THC) Screen Alcohol, Quantitative HIV 1&2 Antibody Screen Negative HIV P24 Antigen Negative 06/07/17 06/08/17 06/08/17 15:44 05:22 05:22 WBC 11.0 H 13.3 H RBC 3.99 L 4.22 Hgb 12.4 D 13.2 Hct 37.1 39.2 MCV 92.9 92.9 MCH 31.2 31.2 MCHC 33.6 33.6 RDW 13.4 13.2 Plt Count 220 251 MPV 8.4 8.5 Neutrophils % 81.3 Lymphocytes % 10.7 D Monocytes % 7.7 Eosinophils % 0.0 Basophils % 0.3 VBG pH POC VBG pCO2 POC VBG pO2 Mixed VBG HCO3 Sodium 137 Potassium 3.7 Chloride 105 Carbon Dioxide 21 Anion Gap 11 BUN 29 H D Creatinine 1.3 D Creat Clearance w eGFR 59.17 Random Glucose 96 Lactic Acid Calcium 7.3 L Phosphorus 2.8 Magnesium 2.8 H Total Bilirubin 0.8 AST 500 H ALT 227 H Alkaline Phosphatase 163 H Creatine Kinase Creatine Kinase Index CK-MB (CK-2) Total Protein 6.7 Albumin 2.1 L Urine Color Urine Appearance Urine pH Ur Specific [place] Urine Protein Urine Glucose (UA) Urine Ketones Urine Blood Urine Nitrite Urine Bilirubin Urine Urobilinogen Ur Leukocyte Esterase Urine WBC (Auto) Urine RBC (Auto) Hyaline Casts Urine Mucus Random Vancomycin Opiates Screen Methadone Screen Barbiturate Screen Phencyclidine Screen Ur Amphetamines Screen MDMA (Ecstasy) Screen Benzodiazepines Screen Cocaine Screen U Marijuana (THC) Screen Alcohol, Quantitative HIV 1&2 Antibody Screen HIV P24 Antigen Problem List - Problems (1) ARDS (adult respiratory distress syndrome) Code(s): J80 - ACUTE RESPIRATORY DISTRESS SYNDROME (2) Acute respiratory failure Code(s): J96.00 - ACUTE RESPIRATORY FAILURE, UNSP W HYPOXIA OR HYPERCAPNIA (3) Rhabdomyolysis Code(s): M62.82 - RHABDOMYOLYSIS (4) Hyponatremia Code(s): E87.1 - HYPO-OSMOLALITY AND HYPONATREMIA (5) Hypoxia Code(s): R09.02 - HYPOXEMIA Assessment/Plan NIPPV L wean FiO2 as tolerated ABX / Tamiflu per ID Aspiration precautions Minimize IVF BD TX Although he has had some mild improvement, I again D/W and patient low threshold for intubation and mechanical ventilation Strict I&O VTE prophylaxis ICU monitoring Dr Quezada Critical care time spent in reviewing chart, evaluating patient and formulating plan - 36 minutes. Problem List - Problems (1) ARDS (adult respiratory distress syndrome) Code(s): J80 - ACUTE RESPIRATORY DISTRESS SYNDROME (2) Acute respiratory failure Code(s): J96.00 - ACUTE RESPIRATORY FAILURE, UNSP W HYPOXIA OR HYPERCAPNIA (3) Rhabdomyolysis Code(s): M62.82 - RHABDOMYOLYSIS (4) Hyponatremia Code(s): E87.1 - HYPO-OSMOLALITY AND HYPONATREMIA (5) Hypoxia Code(s): R09.02 - HYPOXEMIA
--- NOTE | 2017-06-08 13:09 | PN ---
Physical Exam: SUBJECTIVE: Patient seen and examined in ICU. Patient satting well on BiPap. Patient feels better, but desaturates when bipap machine taken off face. OBJECTIVE: Vital Signs Period Temp Pulse Resp BP Sys/Campoverde Pulse Ox Last 24 Hr 98.8 F-102.5 F 76-88 20-26 105-126/62-86 91-100 GENERAL: The patient is awake, alert, and fully oriented, on Bipap HEAD: Normal with no signs of trauma. EYES: PERRL, extraocular movements intact, sclera anicteric, conjunctiva clear. No ptosis. NECK: Trachea midline, full range of motion, supple. LUNGS: Breath sounds equal, Tachypneic, Bibasilar rhonchi HEART: Regular rate and rhythm, S1, S2 without murmur, rub or gallop. ABDOMEN: Soft, nontender, nondistended, normoactive bowel sounds, no guarding, no rebound, no hepatosplenomegaly, no masses. EXTREMITIES: 2+ pulses, warm, well-perfused, no edema. NEUROLOGICAL: Cranial nerves II through XII grossly intact. Normal speech, gait not observed. PSYCH: Normal mood, normal affect. SKIN: Warm, dry, normal turgor, no rashes or lesions noted Laboratory Results - last 24 hr 06/07/17 06/07/17 06/07/17 08:10 08:10 13:15 WBC RBC Hgb Hct MCV MCH MCHC RDW Plt Count MPV Neutrophils % Lymphocytes % Monocytes % Eosinophils % Basophils % VBG pH 7.44 H POC VBG pCO2 30.8 L POC VBG pO2 35.3 Mixed VBG HCO3 20.7 Sodium Potassium Chloride Carbon Dioxide Anion Gap BUN Creatinine Creat Clearance w eGFR Random Glucose Lactic Acid 2.1 H 1.7 Calcium Phosphorus Magnesium Total Bilirubin AST ALT Alkaline Phosphatase Creatine Kinase Creatine Kinase Index CK-MB (CK-2) Total Protein Albumin TSH Urine Color Urine Appearance Urine pH Ur Specific [place] Urine Protein Urine Glucose (UA) Urine Ketones Urine Blood Urine Nitrite Urine Bilirubin Urine Urobilinogen Ur Leukocyte Esterase Urine WBC (Auto) Urine RBC (Auto) Hyaline Casts Urine Mucus Random Vancomycin Opiates Screen Methadone Screen Barbiturate Screen Phencyclidine Screen Ur Amphetamines Screen MDMA (Ecstasy) Screen Benzodiazepines Screen Cocaine Screen U Marijuana (THC) Screen Alcohol, Quantitative HIV 1&2 Antibody Screen HIV P24 Antigen 06/07/17 06/07/17 06/07/17 13:20 13:20 14:25 WBC RBC Hgb Hct MCV MCH MCHC RDW Plt Count MPV Neutrophils % Lymphocytes % Monocytes % Eosinophils % Basophils % VBG pH POC VBG pCO2 POC VBG pO2 Mixed VBG HCO3 Sodium Potassium Chloride Carbon Dioxide Anion Gap BUN Creatinine Creat Clearance w eGFR Random Glucose Lactic Acid Calcium Phosphorus Magnesium Total Bilirubin AST ALT Alkaline Phosphatase Creatine Kinase Creatine Kinase Index CK-MB (CK-2) Total Protein Albumin TSH Urine Color Yellow Urine Appearance Slcloudy Urine pH 5.0 Ur Specific [place] 1.010 Urine Protein 2+ H Urine Glucose (UA) Negative Urine Ketones Negative Urine Blood 3+ H Urine Nitrite Negative Urine Bilirubin Negative Urine Urobilinogen Negative Ur Leukocyte Esterase Negative Urine WBC (Auto) None Urine RBC (Auto) 1 Hyaline Casts 1 Urine Mucus Rare Random Vancomycin Opiates Screen Negative Methadone Screen Negative Barbiturate Screen Negative Phencyclidine Screen Negative Ur Amphetamines Screen Negative MDMA (Ecstasy) Screen Negative Benzodiazepines Screen Negative Cocaine Screen Negative U Marijuana (THC) Screen Negative Alcohol, Quantitative < 5.0 HIV 1&2 Antibody Screen HIV P24 Antigen 06/07/17 06/07/17 06/07/17 15:44 15:44 15:44 WBC RBC Hgb Hct MCV MCH MCHC RDW Plt Count MPV Neutrophils % Lymphocytes % Monocytes % Eosinophils % Basophils % VBG pH POC VBG pCO2 POC VBG pO2 Mixed VBG HCO3 Sodium 134 L Potassium 3.7 Chloride 101 Carbon Dioxide 23 Anion Gap 10 BUN 40 H Creatinine 1.9 H Creat Clearance w eGFR 38.19 Random Glucose 107 H D Lactic Acid Calcium 6.9 L* Phosphorus Magnesium Total Bilirubin 0.8 AST 625 H D ALT 249 H D Alkaline Phosphatase 153 H Creatine Kinase 5509 H Creatine Kinase Index 0.1 CK-MB (CK-2) 2.318 Total Protein 6.0 L Albumin 2.0 L TSH Urine Color Urine Appearance Urine pH Ur Specific [place] Urine Protein Urine Glucose (UA) Urine Ketones Urine Blood Urine Nitrite Urine Bilirubin Urine Urobilinogen Ur Leukocyte Esterase Urine WBC (Auto) Urine RBC (Auto) Hyaline Casts Urine Mucus Random Vancomycin 12.531 Opiates Screen Methadone Screen Barbiturate Screen Phencyclidine Screen Ur Amphetamines Screen MDMA (Ecstasy) Screen Benzodiazepines Screen Cocaine Screen U Marijuana (THC) Screen Alcohol, Quantitative HIV 1&2 Antibody Screen Negative HIV P24 Antigen Negative 06/07/17 06/08/17 06/08/17 15:44 05:22 05:22 WBC 11.0 H 13.3 H RBC 3.99 L 4.22 Hgb 12.4 D 13.2 Hct 37.1 39.2 MCV 92.9 92.9 MCH 31.2 31.2 MCHC 33.6 33.6 RDW 13.4 13.2 Plt Count 220 251 MPV 8.4 8.5 Neutrophils % 81.3 Lymphocytes % 10.7 D Monocytes % 7.7 Eosinophils % 0.0 Basophils % 0.3 VBG pH POC VBG pCO2 POC VBG pO2 Mixed VBG HCO3 Sodium 137 Potassium 3.7 Chloride 105 Carbon Dioxide 21 Anion Gap 11 BUN 29 H D Creatinine 1.3 D Creat Clearance w eGFR 59.17 Random Glucose 96 Lactic Acid Calcium 7.3 L Phosphorus 2.8 Magnesium 2.8 H Total Bilirubin 0.8 AST 500 H ALT 227 H Alkaline Phosphatase 163 H Creatine Kinase Creatine Kinase Index CK-MB (CK-2) Total Protein 6.7 Albumin 2.1 L TSH Urine Color Urine Appearance Urine pH Ur Specific [place] Urine Protein Urine Glucose (UA) Urine Ketones Urine Blood Urine Nitrite Urine Bilirubin Urine Urobilinogen Ur Leukocyte Esterase Urine WBC (Auto) Urine RBC (Auto) Hyaline Casts Urine Mucus Random Vancomycin Opiates Screen Methadone Screen Barbiturate Screen Phencyclidine Screen Ur Amphetamines Screen MDMA (Ecstasy) Screen Benzodiazepines Screen Cocaine Screen U Marijuana (THC) Screen Alcohol, Quantitative HIV 1&2 Antibody Screen HIV P24 Antigen 06/08/17 05:22 WBC RBC Hgb Hct MCV MCH MCHC RDW Plt Count MPV Neutrophils % Lymphocytes % Monocytes % Eosinophils % Basophils % VBG pH POC VBG pCO2 POC VBG pO2 Mixed VBG HCO3 Sodium Potassium Chloride Carbon Dioxide Anion Gap BUN Creatinine Creat Clearance w eGFR Random Glucose Lactic Acid Calcium Phosphorus Magnesium Total Bilirubin AST ALT Alkaline Phosphatase Creatine Kinase Creatine Kinase Index CK-MB (CK-2) Total Protein Albumin TSH Cancelled Urine Color Urine Appearance Urine pH Ur Specific [place] Urine Protein Urine Glucose (UA) Urine Ketones Urine Blood Urine Nitrite Urine Bilirubin Urine Urobilinogen Ur Leukocyte Esterase Urine WBC (Auto) Urine RBC (Auto) Hyaline Casts Urine Mucus Random Vancomycin Opiates Screen Methadone Screen Barbiturate Screen Phencyclidine Screen Ur Amphetamines Screen MDMA (Ecstasy) Screen Benzodiazepines Screen Cocaine Screen U Marijuana (THC) Screen Alcohol, Quantitative HIV 1&2 Antibody Screen HIV P24 Antigen Active Medications Generic Name Dose Route Start Last Admin Trade Name Freq PRN Reason Stop Dose Admin Acetaminophen 1,000 mg 06/07/17 20:31 06/08/17 08:18 Ofirmev Injection - IVPB 1,000 mg Q6H PRN Administration FEVER Chlorhexidine Gluconate 1 applic 06/07/17 22:00 06/07/17 22:09 Hibiclens For Decolonization - TP 1 applic HS [facility] Administration Vancomycin HCl 1,250 mg/ 250 mls @ 166.667 mls/hr 06/07/17 22:00 06/08/17 11: 04 Dextrose IVPB 166.667 mls/hr Q12H [facility]ESE Administration Protocol Levofloxacin 750 mg in 150 mls @ 150 mls/hr 06/07/17 18:30 06/07/17 19:25 Levaquin 750 Mg Premixed Ivpb - IVPB Not Given Q24H [facility]ESE Mupirocin 1 applic 06/07/17 22:00 06/08/17 09:25 Bactroban Ointment (For Decolonization) - NS 06/12/17 21:59 1 applic BID [facility] Administration Oseltamivir Phosphate 75 mg 06/07/17 22:00 06/08/17 09:25 Tamiflu - PO 06/12/17 21:59 75 mg BID [facility] Administration ASSESSMENT/PLAN: 47 year old M with pmh of HTN, asthma, and ETOH abuse presents with ARDS and acute hypoxic respiratory failure on Bipap. #Resp ARDS Acute hypoxic respiratory failure -Patient on Bipap satting well, but rapidly desaturates off bipap. Patient currently on FIO2 of 80%, Will have low threshold for intubation -Wean FIO2 as tolerated -Aspiration precautions #Renal MICHAEL, improving -Monitor urine output, creatinine -Avoid nephrotoxic medications #ID ARDS Possible Influenza +/- lung consolidation -Continue vancomycin, levaquin, and tamiflu for influenza and lung consolidations #FEN/GI -No IVF -wnl -NPO #PPx -SCDs for DVT ppx -No GI ppx #Dispo Continue ICU level of care Visit type - Emergency Visit Emergency Visit: Yes ED Registration Date: 06/07/17 Care time: The patient presented to the Emergency Department on the above date and was hospitalized for further evaluation of their emergent condition. - New Patient This patient is new to me today: Yes Date on this admission: 06/08/17 - Critical Care Critical Care patient: Yes Total Critical Care Time (in minutes): 40 Critical Care Statement: The care of this patient involved high complexity decision making to prevent further life threatening deterioration of the patient 's condition and/or to evaluate & treat vital organ system(s) failure or risk of failure.
[2017-06-08] MEDS: LEVOFLOXACIN 750 MG IVPB 750 MG/150 ML BAG IVPB SCH (18:01)
[2017-06-08] MEDS ORDERED: SODIUM CHLORIDE NASAL SPRAY 44 ML BOTTLE NS PRN (20:07)
--- NOTE | 2017-06-08 20:45 | PN ---
Progress Note (short form) - Note Progress Note: ICU /bipap support patient wearing bipap fiO2 @ 80% --98%sat states effort of breathing is "better" Vital Signs Period Temp Pulse Resp BP Sys/Campoverde Pulse Ox Last 24 Hr 98.8 F-102 F 76-92 18-26 103-137/77-91 92-100 awake alert on Bipap sat 98% neck supple heat S1/S2 no M/G lungs grossly clear abd soft non tender ext no edma FROM CBC, BMP 06/08/17 05:22 06/08/17 05:22 CMP Sodium 137 mmol/L (136-145) 06/08/17 05:22 Potassium 3.7 mmol/L (3.5-5.1) 06/08/17 05:22 Chloride 105 mmol/L (98-107) 06/08/17 05:22 Carbon Dioxide 21 mmol/L (21-32) 06/08/17 05:22 Anion Gap 11 (8-16) 06/08/17 05:22 BUN 29 mg/dL (7-18) H D 06/08/17 05:22 Creatinine 1.3 mg/dL (0.7-1.3) D 06/08/17 05:22 Creat Clearance w eGFR 59.17 (>60) 06/08/17 05:22 Random Glucose 96 mg/dL (74-106) 06/08/17 05:22 Lactic Acid 1.7 mmol/L (0.0-2.0) 06/07/17 13:15 Calcium 7.3 mg/dL (8.5-10.1) L 06/08/17 05:22 Phosphorus 2.8 mg/dL (2.5-4.9) 06/08/17 05:22 Magnesium 2.8 mg/dL (1.8-2.4) H 06/08/17 05:22 Total Bilirubin 0.8 mg/dL (0.2-1.0) 06/08/17 05:22 AST 500 U/L (15-37) H 06/08/17 05:22 ALT 227 U/L (12-78) H 06/08/17 05:22 Alkaline Phosphatase 163 U/L (45-117) H 06/08/17 05:22 Ammonia 75.5 umol/L (11-32) H 06/07/17 08:10 Creatine Kinase 5509 IU/L (39-308) H 06/07/17 15:44 Creatine Kinase Index 0.1 % (0.0-5.0) 06/07/17 15:44 CK-MB (CK-2) 2.318 ng/mL (0.5-3.6) 06/07/17 15:44 Troponin I 0.06 ng/ml (0.00-0.05) H 06/07/17 09:30 B-Natriuretic Peptide 107.08 pg/ml (5-125) 06/07/17 09:30 Total Protein 6.7 g/dl (6.4-8.2) 06/08/17 05:22 Albumin 2.1 g/dl (3.4-5.0) L 06/08/17 05:22 TSH 0.36 uIU/ml (0.358-3.74) 06/08/17 05:22 Microbiology 06/08/17 12:00 Nasopharyngeal Swab Respiratory Syncytial Virus Ag - Final 06/07/17 13:10 Serum Legionella Serology - Preliminary 06/07/17 08:10 Blood - Peripheral Venous Blood Culture - Preliminary NO GROWTH OBTAINED AFTER 24 HOURS, INCUBATION TO CONTINUE FOR 4 DAYS. 06/07/17 08:00 Blood - Peripheral Venous Blood Culture - Preliminary NO GROWTH OBTAINED AFTER 24 HOURS, INCUBATION TO CONTINUE FOR 4 DAYS. 06/07/17 11:35 Urine For Antigen Detection Legionella Antigen - Final 06/07/17 11:35 Urine For Antigen Detection Streptococcus pneumoniae Antigen (M - Final 06/07/17 13:20 Nasopharyngeal Swab Influenza Types A,B Antigen (MAXIMINO) - Final 06/07/17 13:20 Nasopharyngeal Swab - Final Active Medications Acetaminophen (Ofirmev Injection -) 1,000 mg IVPB Q6H PRN PRN Reason: FEVER Last Admin: 06/08/17 18:15 Dose: 1,000 mg Chlorhexidine Gluconate (Hibiclens For Decolonization -) 1 applic TP HS [facility] Last Admin: 06/07/17 22:09 Dose: 1 applic Vancomycin HCl 1,250 mg/ (Dextrose) 250 mls @ 166.667 mls/hr IVPB Q12H [facility] PRN Reason: Protocol Last Admin: 06/08/17 11:04 Dose: 166.667 mls/hr Levofloxacin (Levaquin 750 Mg Premixed Ivpb -) 750 mg in 150 mls @ 150 mls/hr IVPB Q24H [facility] Last Admin: 06/08/17 18:01 Dose: 150 mls/hr Mupirocin (Bactroban Ointment (For Decolonization) -) 1 applic NS BID [facility] Stop: 06/12/17 21:59 Last Admin: 06/08/17 09:25 Dose: 1 applic Oseltamivir Phosphate (Tamiflu -) 75 mg PO BID [facility] Stop: 06/12/17 21:59 Last Admin: 06/08/17 09:25 Dose: 75 mg Sodium Chloride ([place] Nasal [place] -) 2 spray NS TID PRN PRN Reason: NASAL CONGESTION Problem List - Problems (1) ARDS (adult respiratory distress syndrome) Assessment/Plan: bipap keep O2 sat >90% FiO2 @80% attempt to wean FiO2 iftolerated pulmonary consult appreciated ICU care ID consult emperic tx /follow Vanco trough / levaquin renal dose Isolation Code(s): J80 - ACUTE RESPIRATORY DISTRESS SYNDROME (2) Rhabdomyolysis Assessment/Plan: IV fluids --precaution due to ARDS follow labs Code(s): M62.82 - RHABDOMYOLYSIS (3) Abnormal LFTs Code(s): R94.5 - ABNORMAL RESULTS OF LIVER FUNCTION STUDIES (4) Acute respiratory failure Code(s): J96.00 - ACUTE RESPIRATORY FAILURE, UNSP W HYPOXIA OR HYPERCAPNIA (5) Hypoxia Code(s): R09.02 - HYPOXEMIA (6) Obesity Code(s): E66.9 - OBESITY, UNSPECIFIED (7) Pneumonia Code(s): J18.9 - PNEUMONIA, UNSPECIFIED ORGANISM (8) Substance abuse Code(s): F19.10 - OTHER PSYCHOACTIVE SUBSTANCE ABUSE, UNCOMPLICATED
[2017-06-08] MEDS: CHLORHEXIDINE GLUCONATE 4% CLEANSER FOR DECOLONIZATION TP SCH (21:43)
[2017-06-09] MEDS: ACETAMINOPHEN 1000 MG/100 ML VIAL (NON FORMULARY) IVPB PRN (03:22)
[2017-06-09 06:20] LABS: BASO % 0.1 % (0-2.0); EOS % 0.1 % (0-4.5); HEMATOCRIT 35.6 % (35.4-49); HEMOGLOBIN 12.1 GM/dL (11.7-16.9); LYMPH % 5.1 % (8-40); MCH 31.2 pg (25.7-33.7); MCHC 33.9 g/dl (32.0-35.9); MEAN PLT VOLUME 8.5 fl (7.5-11.1); MONO % 3.3 % (3.8-10.2); NEUT % 91.4 % (42.8-82.8); RBC 3.87 M/mm3 (4.00-5.60); RDW 13.4 % (11.9-15.9); WHITE BLOOD COUNT 14.1 K/mm3 (4.0-10.0)
[2017-06-09 06:44] LABS: ALBUMIN 1.8 g/dl (3.4-5.0); ANION GAP 9 (8-16); BLOOD UREA NITROGEN 17 mg/dL (7-18); CALCIUM 7.4 mg/dL (8.5-10.1); CHLORIDE 104 mmol/L (98-107); CO2 24 mmol/L (21-32); GLUCOSE,RANDOM 105 mg/dL (74-106); MAGNESIUM 2.3 mg/dL (1.8-2.4); POTASSIUM 3.4 mmol/L (3.5-5.1); SODIUM 137 mmol/L (136-145)
[2017-06-09 06:49] LABS: ALK PHOS 182 U/L (45-117); BILIRUBIN,TOTAL 1.1 mg/dL (0.2-1.0); PHOSPHOROUS 2.6 mg/dL (2.5-4.9); SGOT/AST 316 U/L (15-37); SGPT/ALT 178 U/L (12-78); TOT PROT 6.6 g/dl (6.4-8.2)
--- NOTE | 2017-06-09 08:52 | PN ---
Progress Note (short form) - Note Progress Note: awake and alert on bipap 70%, desats when he is off bipap no chest pain, no abd pain Vital Signs Period Temp Pulse Resp BP Sys/Campoverde Pulse Ox Last 24 Hr 99.1 F-102 F 80-95 18-30 103-144/77-95 91-96 cor-rrr lungs bibasilar crackles abd soft,nt ext no edema CBC, BMP 06/09/17 05:05 06/09/17 05:05 Microbiology 06/08/17 12:00 Nasopharyngeal Swab Respiratory Syncytial Virus Ag - Final 06/07/17 13:10 Serum Legionella Serology - Preliminary 06/07/17 08:10 Blood - Peripheral Venous Blood Culture - Preliminary NO GROWTH OBTAINED AFTER 24 HOURS, INCUBATION TO CONTINUE FOR 4 DAYS. 06/07/17 08:00 Blood - Peripheral Venous Blood Culture - Preliminary NO GROWTH OBTAINED AFTER 24 HOURS, INCUBATION TO CONTINUE FOR 4 DAYS. 06/07/17 11:35 Urine For Antigen Detection Legionella Antigen - Final 06/07/17 11:35 Urine For Antigen Detection Streptococcus pneumoniae Antigen (M - Final 06/07/17 13:20 Nasopharyngeal Swab Influenza Types A,B Antigen (MAXIMINO) - Final 06/07/17 13:20 Nasopharyngeal Swab - Final rsv negative HIV negative hep serology negative echo normal lv fxn, no pericardial effusion CXRAY unchanged Current Medications Chlorhexidine Gluconate (Hibiclens For Decolonization -) 1 applic TP HS [facility] Last Admin: 06/08/17 21:43 Dose: 1 applic Vancomycin HCl 1,250 mg/ (Dextrose) 250 mls @ 166.667 mls/hr IVPB Q12H [facility] PRN Reason: Protocol Last Admin: 06/08/17 21:43 Dose: 166.667 mls/hr Levofloxacin (Levaquin 750 Mg Premixed Ivpb -) 750 mg in 150 mls @ 150 mls/hr IVPB Q24H [facility] Last Admin: 06/08/17 18:01 Dose: 150 mls/hr Mupirocin (Bactroban Ointment (For Decolonization) -) 1 applic NS BID [facility] Stop: 06/12/17 21:59 Last Admin: 06/08/17 21:43 Dose: 1 applic Oseltamivir Phosphate (Tamiflu -) 75 mg PO BID [facility] Stop: 06/12/17 21:59 Last Admin: 06/08/17 21:57 Dose: 75 mg Sodium Chloride ([place] Nasal [place] -) 2 spray NS TID PRN PRN Reason: NASAL CONGESTION Last Admin: 06/08/17 22:17 Dose: 2 sprays imp/reccd ARDS- respiratory failure most likely secondary to influenza continue vancomycin/levaquin/tamiflu f/u cultures-sputum culture pending renal function normal lfts improving Problem List - Problems (1) Acute respiratory failure Code(s): J96.00 - ACUTE RESPIRATORY FAILURE, UNSP W HYPOXIA OR HYPERCAPNIA (2) Pneumonia Code(s): J18.9 - PNEUMONIA, UNSPECIFIED ORGANISM (3) Hyponatremia Code(s): E87.1 - HYPO-OSMOLALITY AND HYPONATREMIA (4) Rhabdomyolysis Code(s): M62.82 - RHABDOMYOLYSIS (5) Abnormal LFTs Code(s): R94.5 - ABNORMAL RESULTS OF LIVER FUNCTION STUDIES
[2017-06-09] MEDS ORDERED: PT OWN MED DRAWER 7, Y5N ONE ×2 (09:10→21:22)
[2017-06-09] MEDS: MUPIROCIN 2% TOPICAL OINTMENT FOR DECOLONIZATION NS SCH ×2 (09:31→21:34)
[2017-06-09] MEDS: OSELTAMIVIR PHOSPHATE 75 MG CAPSULE PO SCH ×2 (09:31→22:05)
[2017-06-09] MEDS: VANCOMYCIN 1,250 MG in DEXTROSE 5%-WATER - 250 ML IVPB SCH ×2 (09:39→21:33)
[2017-06-09] MEDS: KCL 10 MEQ IVPB 10 MEQ/100 ML INFUS.BAG IVPB SCH ×2 (11:28→11:30)
[2017-06-09] MEDS ORDERED: PANTOPRAZOLE SODIUM 40 MG VIAL IVPUSH ONE (11:41)
--- NOTE | 2017-06-09 12:11 | PN ---
Physical Exam: SUBJECTIVE: Patient seen and examined in ICU. Patient frustrated with Bipap. Patient's status is about the same. Patient rapidly desaturates after taking off Bipap down to 55%. Currently on 70% FIO2 OBJECTIVE: Vital Signs Period Temp Pulse Resp BP Sys/Campoverde Pulse Ox Last 24 Hr 99.1 F-102 F 83-95 15-30 118-148/88-101 91-95 GENERAL: The patient is awake, alert, and fully oriented, on Bipap HEAD: Normal with no signs of trauma. EYES: PERRL, extraocular movements intact, sclera anicteric, conjunctiva clear. No ptosis. NECK: Trachea midline, full range of motion, supple. LUNGS: Breath sounds equal, Tachypneic, Bibasilar rhonchi HEART: Regular rate and rhythm, S1, S2 without murmur, rub or gallop. ABDOMEN: Soft, nontender, nondistended, normoactive bowel sounds, no guarding, no rebound, no hepatosplenomegaly, no masses. EXTREMITIES: 2+ pulses, warm, well-perfused, no edema. NEUROLOGICAL: Cranial nerves II through XII grossly intact. Normal speech, gait not observed. PSYCH: Normal mood, normal affect. SKIN: Warm, dry, normal turgor, no rashes or lesions noted Laboratory Results - last 24 hr 06/07/17 06/08/17 06/08/17 15:44 05:22 05:22 WBC RBC Hgb Hct MCV MCH MCHC RDW MPV Neutrophils % Lymphocytes % Monocytes % Eosinophils % Basophils % Sodium 137 Potassium 3.7 Chloride 105 Carbon Dioxide 21 Anion Gap 11 BUN 29 H D Creatinine 1.3 D Creat Clearance w eGFR 59.17 Random Glucose 96 Calcium 7.3 L Phosphorus 2.8 Magnesium 2.8 H Total Bilirubin 0.8 AST 500 H ALT 227 H Alkaline Phosphatase 163 H Ammonia Total Protein 6.7 Albumin 2.1 L TSH 0.36 Cancelled Hepatitis A IgM Ab Negative Hep Bs Antigen Negative Hep B Core IgM Ab Negative Hepatitis C Antibody <0.1 06/09/17 06/09/17 06/09/17 05:05 05:05 05:05 WBC 14.1 H RBC 3.87 L Hgb 12.1 Hct 35.6 MCV 92.0 MCH 31.2 MCHC 33.9 RDW 13.4 MPV 8.5 Neutrophils % 91.4 H Lymphocytes % 5.1 L D Monocytes % 3.3 L Eosinophils % 0.1 D Basophils % 0.1 Sodium 137 Potassium 3.4 L Chloride 104 Carbon Dioxide 24 Anion Gap 9 BUN 17 D Creatinine 1.0 D Creat Clearance w eGFR > 60 Random Glucose 105 Calcium 7.4 L Phosphorus 2.6 Magnesium 2.3 Total Bilirubin 1.1 H D AST 316 H D ALT 178 H D Alkaline Phosphatase 182 H Ammonia 82.71 H Total Protein 6.6 Albumin 1.8 L TSH Hepatitis A IgM Ab Hep Bs Antigen Hep B Core IgM Ab Hepatitis C Antibody Active Medications Generic Name Dose Route Start Last Admin Trade Name Freq PRN Reason Stop Dose Admin Chlorhexidine Gluconate 1 applic 06/07/17 22:00 06/08/17 21:43 Hibiclens For Decolonization - TP 1 applic HS [facility] Administration Vancomycin HCl 1,250 mg/ 250 mls @ 166.667 mls/hr 06/07/17 22:00 06/09/17 09: 39 Dextrose IVPB 166.667 mls/hr Q12H [facility] Administration Protocol Levofloxacin 750 mg in 150 mls @ 150 mls/hr 06/07/17 18:30 06/08/17 18:01 Levaquin 750 Mg Premixed Ivpb - IVPB 150 mls/hr Q24H [facility] Administration Potassium Chloride 10 meq in 100 mls @ 100 mls/hr 06/09/17 10:15 06/09/17 11: 30 Potassium Chloride 10 Meq Premix Ivpb - IVPB 06/09/17 12:14 100 mls/hr Q60M [facility] Administration Mupirocin 1 applic 06/07/17 22:00 06/09/17 09:31 Bactroban Ointment (For Decolonization) - NS 06/12/17 21:59 1 applic BID [facility] Administration Oseltamivir Phosphate 75 mg 06/07/17 22:00 06/09/17 09:31 Tamiflu - PO 06/12/17 21:59 75 mg BID [facility] Administration Sodium Chloride 2 spray 06/08/17 20:07 06/08/17 22:17 [place] [employer] Nasal [employer] - NS 2 sprays TID PRN Administration NASAL CONGESTION ASSESSMENT/PLAN: 47 year old M with pmh of HTN, asthma, and ETOH abuse presents with ARDS and acute hypoxic respiratory failure on Bipap. #Resp ARDS Acute hypoxic respiratory failure -Patient on Bipap satting well, but rapidly desaturates off bipap. Patient currently on FIO2 of 70%, Will have low threshold for intubation -Wean FIO2 as tolerated -Aspiration precautions #Renal MICHAEL, improved -Monitor urine output, creatinine -Avoid nephrotoxic medications #ID ARDS Possible Influenza +/- lung consolidation -Continue vancomycin, levaquin, and tamiflu for influenza and lung consolidations #FEN/GI -No IVF -Replete K+, monitor BMP -NPO #PPx -SCDs for DVT ppx -No GI ppx #Dispo Continue ICU level of care Visit type - Emergency Visit Emergency Visit: Yes ED Registration Date: 06/07/17 Care time: The patient presented to the Emergency Department on the above date and was hospitalized for further evaluation of their emergent condition. - New Patient This patient is new to me today: No - Critical Care Critical Care patient: Yes Total Critical Care Time (in minutes): 35 Critical Care Statement: The care of this patient involved high complexity decision making to prevent further life threatening deterioration of the patient 's condition and/or to evaluate & treat vital organ system(s) failure or risk of failure.
--- NOTE | 2017-06-09 12:25 | PN ---
Teaching Attending Note Name of Resident: Eren Alvarez ATTENDING PHYSICIAN STATEMENT I saw and evaluated the patient. I reviewed the resident's note and discussed the case with the resident. I agree with the resident's findings and plan as documented. SUBJECTIVE: Patient seen and examined in the ICU. Awake and alert on NIPPV, remains obn 70 % FiO2. No pressors. No hemoptysis. Rapid desaturation once off NIPPV. CXR: No gross change in bilateral infiltrates Intake & Output 06/06/17 06/07/17 06/08/17 06/09/17 23:59 23:59 23:59 23:59 Intake Total 1800 1170 500 Output Total 2400 3100 500 Balance -600 -1930 0 Weight 201 lb 3 oz 201 lb 4.8 oz 195 lb 5 oz Last Vital Signs Temp Pulse Resp BP Pulse Ox 100 F H 94 H 15 148/101 92 L 06/09/17 10:00 06/09/17 10:00 06/09/17 10:00 06/09/17 10:00 06/09/17 12:16 Active Medications Chlorhexidine Gluconate (Hibiclens For Decolonization -) 1 applic TP HS [facility] Last Admin: 06/08/17 21:43 Dose: 1 applic Vancomycin HCl 1,250 mg/ (Dextrose) 250 mls @ 166.667 mls/hr IVPB Q12H [facility] PRN Reason: Protocol Last Admin: 06/09/17 09:39 Dose: 166.667 mls/hr Levofloxacin (Levaquin 750 Mg Premixed Ivpb -) 750 mg in 150 mls @ 150 mls/hr IVPB Q24H [facility] Last Admin: 06/08/17 18:01 Dose: 150 mls/hr Mupirocin (Bactroban Ointment (For Decolonization) -) 1 applic NS BID [facility] Stop: 06/12/17 21:59 Last Admin: 06/09/17 09:31 Dose: 1 applic Oseltamivir Phosphate (Tamiflu -) 75 mg PO BID [facility] Stop: 06/12/17 21:59 Last Admin: 06/09/17 09:31 Dose: 75 mg Sodium Chloride ([place] Nasal [place] -) 2 spray NS TID PRN PRN Reason: NASAL CONGESTION Last Admin: 06/08/17 22:17 Dose: 2 sprays Constitutional: Yes: Awake and alert on NIPPV, Mildly tachypneic at rest Eyes: Yes: Conjunctiva Clear, EOM Intact HENT: Yes: Atraumatic, Normocephalic Neck: Yes: Supple, Trachea Midline Cardiovascular: Yes: Tachycardia Respiratory: Yes: Cough, on NIPPV, Rhonchi, SOB, Tachypnea. No: Stridor, Wheezes Gastrointestinal: Yes: Normal Bowel Sounds, Soft, Abdomen, Obese Renal/: Yes: WNL Musculoskeletal: Yes: WNL Extremities: Yes: WNL Edema: No Peripheral Pulses WNL: Yes Integumentary: Yes: WNL Neurological: Yes: Alert, Oriented ...Motor Strength: WNL Psychiatric: Yes: WNL, Alert, Oriented Labs: Laboratory Results - last 24 hr 06/07/17 06/08/17 06/08/17 15:44 05:22 05:22 WBC RBC Hgb Hct MCV MCH MCHC RDW MPV Neutrophils % Lymphocytes % Monocytes % Eosinophils % Basophils % Sodium 137 Potassium 3.7 Chloride 105 Carbon Dioxide 21 Anion Gap 11 BUN 29 H D Creatinine 1.3 D Creat Clearance w eGFR 59.17 Random Glucose 96 Calcium 7.3 L Phosphorus 2.8 Magnesium 2.8 H Total Bilirubin 0.8 AST 500 H ALT 227 H Alkaline Phosphatase 163 H Ammonia Total Protein 6.7 Albumin 2.1 L TSH 0.36 Cancelled Hepatitis A IgM Ab Negative Hep Bs Antigen Negative Hep B Core IgM Ab Negative Hepatitis C Antibody <0.1 06/09/17 06/09/17 06/09/17 05:05 05:05 05:05 WBC 14.1 H RBC 3.87 L Hgb 12.1 Hct 35.6 MCV 92.0 MCH 31.2 MCHC 33.9 RDW 13.4 MPV 8.5 Neutrophils % 91.4 H Lymphocytes % 5.1 L D Monocytes % 3.3 L Eosinophils % 0.1 D Basophils % 0.1 Sodium 137 Potassium 3.4 L Chloride 104 Carbon Dioxide 24 Anion Gap 9 BUN 17 D Creatinine 1.0 D Creat Clearance w eGFR > 60 Random Glucose 105 Calcium 7.4 L Phosphorus 2.6 Magnesium 2.3 Total Bilirubin 1.1 H D AST 316 H D ALT 178 H D Alkaline Phosphatase 182 H Ammonia 82.71 H Total Protein 6.6 Albumin 1.8 L TSH Hepatitis A IgM Ab Hep Bs Antigen Hep B Core IgM Ab Hepatitis C Antibody Problem List - Problems (1) ARDS (adult respiratory distress syndrome) Code(s): J80 - ACUTE RESPIRATORY DISTRESS SYNDROME (2) Acute respiratory failure Code(s): J96.00 - ACUTE RESPIRATORY FAILURE, UNSP W HYPOXIA OR HYPERCAPNIA (3) Rhabdomyolysis Code(s): M62.82 - RHABDOMYOLYSIS (4) Hyponatremia Code(s): E87.1 - HYPO-OSMOLALITY AND HYPONATREMIA (5) Hypoxia Code(s): R09.02 - HYPOXEMIA Assessment/Plan NIPPV: wean FiO2 as tolerated ABX / Tamiflu per ID Aspiration precautions Minimize IVF BD TX Although he has had some mild improvement, I again D/W and patient low threshold for intubation and mechanical ventilation Strict I&O VTE prophylaxis ICU monitoring Dr Quezada Critical care time spent in reviewing chart, evaluating patient and formulating plan - 36 minutes. Problem List - Problems (1) ARDS (adult respiratory distress syndrome) Code(s): J80 - ACUTE RESPIRATORY DISTRESS SYNDROME (2) Acute respiratory failure Code(s): J96.00 - ACUTE RESPIRATORY FAILURE, UNSP W HYPOXIA OR HYPERCAPNIA (3) Rhabdomyolysis Code(s): M62.82 - RHABDOMYOLYSIS (4) Hyponatremia Code(s): E87.1 - HYPO-OSMOLALITY AND HYPONATREMIA (5) Hypoxia Code(s): R09.02 - HYPOXEMIA
[2017-06-09 14:33] LABS: PLATELET COUNT 207 K/MM3 (134-434)
--- NOTE | 2017-06-09 15:04 | PN ---
Progress Note, Physician Chief Complaint: Pt A&O; agitated (wants the mask off, but desaturated when changed earier); had sharp chest pain in the morning briefly when Bipap was being changed to 100% Ventimask. History of Present Illness: 47y M hx of htn, hyperlipidemia, asthma, obesity, substance abuse (cocaine years ago; tobacoo; alcohol--last drink one week ago; ?anaboic steroids) presents with complaint of sob. Per girlfriend, the pt has been having fever and cough for about a week with alot of congestion. GF also with similar symptoms last week. Pt endorses worsening sob, and gf finally convinced him to come to the ED today. One family member is being treated for influenza. Pt denies any chest pain, leg swelling, hemoptysis, dizziness, abd pain, n/v. pt arrived with sat of 60% on RA, in mild distress, was started on NRB with improvement to 80%, started on bipap with improvement to 94% (on 04/22, 75% O2). Pts pulm exam noted for scant rales at the bsaes and deminshed breathsounds b/l abd soft notnender ddx includes pna, influenza, ?consier PE, ?underlying lung/heart dz? sepsis orderset initiated cxr continue bipap - Current Medication List Current Medications: Active Medications Chlorhexidine Gluconate (Hibiclens For Decolonization -) 1 applic TP HS [facility] Last Admin: 06/08/17 21:43 Dose: 1 applic Vancomycin HCl 1,250 mg/ (Dextrose) 250 mls @ 166.667 mls/hr IVPB Q12H [facility] PRN Reason: Protocol Last Admin: 06/09/17 09:39 Dose: 166.667 mls/hr Levofloxacin (Levaquin 750 Mg Premixed Ivpb -) 750 mg in 150 mls @ 150 mls/hr IVPB Q24H [facility] Last Admin: 06/08/17 18:01 Dose: 150 mls/hr Mupirocin (Bactroban Ointment (For Decolonization) -) 1 applic NS BID [facility] Stop: 06/12/17 21:59 Last Admin: 06/09/17 09:31 Dose: 1 applic Oseltamivir Phosphate (Tamiflu -) 75 mg PO BID [facility] Stop: 06/12/17 21:59 Last Admin: 06/09/17 09:31 Dose: 75 mg Sodium Chloride ([place] Nasal [place] -) 2 spray NS TID PRN PRN Reason: NASAL CONGESTION Last Admin: 06/08/17 22:17 Dose: 2 sprays - Objective Vital Signs: Vital Signs Temperature 100 F H 06/09/17 10:00 Pulse Rate 89 06/09/17 12:00 Respiratory Rate 24 06/09/17 12:00 Blood Pressure 143/108 06/09/17 12:00 O2 Sat by Pulse Oximetry (%) 92 L 06/09/17 14:27 Constitutional: Yes: Well Nourished, Anxious, Moderate Distress Eyes: Yes: WNL HENT: Yes: WNL Neck: Yes: WNL Cardiovascular: Yes: Regular Rate and Rhythm, S1, S2, S4 Respiratory: Yes: Cough, Diminished, On BiPap, Poor Air Entry, SOB, Tachypnea Gastrointestinal: Yes: Soft, Abdomen, Obese ...Rectal Exam: Yes: Deferred Genitourinary: No: Anuria Breast(s): Yes: WNL Musculoskeletal: Yes: WNL Extremities: Yes: WNL Edema: No Peripheral Pulses WNL: Yes Integumentary: Yes: WNL Neurological: Yes: WNL ...Motor Strength: WNL Psychiatric: Yes: Agitated Labs: CBC, BMP 06/09/17 05:05 06/09/17 05:05 INR, PTT INR 1.16 (0.82-1.09) H 06/07/17 08:10 Abnormal Lab Results 06/09/17 06/09/17 06/09/17 05:05 05:05 05:05 WBC 14.1 H RBC 3.87 L Neutrophils % 91.4 H Lymphocytes % 5.1 L D Monocytes % 3.3 L Potassium 3.4 L Calcium 7.4 L Total Bilirubin 1.1 H D AST 316 H D ALT 178 H D Alkaline Phosphatase 182 H Ammonia 82.71 H Creatine Kinase Troponin I Albumin 1.8 L Triglycerides HDL Cholesterol 06/09/17 06/09/17 15:20 15:20 WBC RBC Neutrophils % Lymphocytes % Monocytes % Potassium Calcium Total Bilirubin AST ALT Alkaline Phosphatase Ammonia Creatine Kinase 1251 H Troponin I 0.29 H D Albumin Triglycerides 205 H HDL Cholesterol 13 L - ....Imaging Chest X-ray: Image Reviewed (no significant change (multiple bilateral hazy opacities; congestion; infiltrates)) Problem List - Problems (1) Substance abuse Assessment/Plan: as per pt's PMD (Dr. Mayo), pt may have, in years past, used cocaine. He drinks heavily at times, is a daily cigarettes smoker. 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 He has been noncompliant to doctors' visits and medications. Code(s): F19.10 - OTHER PSYCHOACTIVE SUBSTANCE ABUSE, UNCOMPLICATED (2) ARDS (adult respiratory distress syndrome) Assessment/Plan: On Bipap, with marked and immediate desaturation when mask is even temporarily removed. On Tamiflu for influenza; on Vancomycin and Levoquin. WBC remain elevated. ECHO: normal LVEF; normal chamber sizes; no valvular abnormalities. Code(s): J80 - ACUTE RESPIRATORY DISTRESS SYNDROME (3) Hyponatremia Assessment/Plan: now normal level. Code(s): E87.1 - HYPO-OSMOLALITY AND HYPONATREMIA (4) Rhabdomyolysis Assessment/Plan: decreasing CK; low CK/MB relative index. BUN/Cr have also improved. Code(s): M62.82 - RHABDOMYOLYSIS (5) Obesity Code(s): E66.9 - OBESITY, UNSPECIFIED (6) Congestive cardiac failure Assessment/Plan: Enlarged heart with ?LV dilation on CT chest. BNP 107; ECHO: normal LVEF; normal chamber sizes; no valvular abnormalities. TNI 0.06-->0.29. Total cholesterol 102 mg/dL; triglycerides 205. TSH: 0.36. Extensive coronary artery calcifications on CT chest, with multiple cardiac risks, including his father dying at 47 yrs old of "heart disease"; will require coronary artery evaluation with stress test and/or angiogram when stable. Code(s): I50.9 - HEART FAILURE, UNSPECIFIED Qualifiers: Congestive heart failure type: unspecified Congestive heart failure chronicity: unspecified Qualified Code(s): I50.9 - Heart failure, unspecified (7) Cigarette nicotine dependence Assessment/Plan: Pt has not smoked for a week; consider aid with patch or pill. Code(s): F17.210 - NICOTINE DEPENDENCE, CIGARETTES, UNCOMPLICATED (8) [place] cardiac risk >20% in next 10 years Assessment/Plan: Coronary artery evaluation with stress MIBI and/or coronary angiogram when stable. Aggressive lipid control; diet change to heart-healthy one, with weight loss; BP control; treatment for substance abuse (including alcohol). Code(s): Z91.89 - OT PERSONAL RISK FACTORS, NOT ELSEWHERE CLASSIFIED (9) Hyperglycemia Assessment/Plan: f/u fasting glucose, HGBA1c. Code(s): R73.9 - HYPERGLYCEMIA, UNSPECIFIED (10) Renal insufficiency Assessment/Plan: on fluids (problematic with pulmonary status) Improving BUN/Cr; f/u Is and Os.. Code(s): N28.9 - DISORDER OF KIDNEY AND URETER, UNSPECIFIED (11) Elevated LFTs Code(s): R79.89 - OTHER SPECIFIED ABNORMAL FINDINGS OF BLOOD CHEMISTRY (12) Hypoalbuminemia Code(s): E88.09 - OT DISORDERS OF PLASMA-PROTEIN METABOLISM, NEC (13) Hypokalemia Assessment/Plan: replete, and maintain 4-4.5. Code(s): E87.6 - HYPOKALEMIA (14) Hypertension Assessment/Plan: now with consistently elevated BP (agitation is a factor). Start antihypertensive medication if this continues, especially if BP still elevated when pt is calm. Code(s): I10 - ESSENTIAL (PRIMARY) HYPERTENSION
[2017-06-09] MEDS ORDERED: ACETAMINOPHEN 1000 MG/100 ML VIAL (NON FORMULARY) IVPB PRN (15:30)
[2017-06-09] MEDS: LEVOFLOXACIN 750 MG IVPB 750 MG/150 ML BAG IVPB SCH (17:36)
--- NOTE | 2017-06-09 21:11 | PN ---
Progress Note (short form) - Note Progress Note: ICU daughters at bedside - case discussed with both remains bipap support patient wearing bipap fiO2 @ 70% --92%sat quickly desaturates when he removes bipap to 60's states effort of breathing is "better" Vital Signs Period Temp Pulse Resp BP Sys/Campoverde Pulse Ox Last 24 Hr 98.8 F-102 F 76-92 18-26 103-137/77-91 92-100 awake alert on Bipap sat 92% neck supple heat S1/S2 no M/G lungs grossly clear abd soft non tender ext no edma FROM CBC, BMP 06/09/17 05:05 06/09/17 05:05 CMP Sodium 137 mmol/L (136-145) 06/09/17 05:05 Potassium 3.4 mmol/L (3.5-5.1) L 06/09/17 05:05 Chloride 104 mmol/L (98-107) 06/09/17 05:05 Carbon Dioxide 24 mmol/L (21-32) 06/09/17 05:05 Anion Gap 9 (8-16) 06/09/17 05:05 BUN 17 mg/dL (7-18) D 06/09/17 05:05 Creatinine 1.0 mg/dL (0.7-1.3) D 06/09/17 05:05 Creat Clearance w eGFR > 60 (>60) 06/09/17 05:05 Random Glucose 105 mg/dL (74-106) 06/09/17 05:05 Lactic Acid 1.7 mmol/L (0.0-2.0) 06/07/17 13:15 Calcium 7.4 mg/dL (8.5-10.1) L 06/09/17 05:05 Phosphorus 2.6 mg/dL (2.5-4.9) 06/09/17 05:05 Magnesium 2.3 mg/dL (1.8-2.4) 06/09/17 05:05 Total Bilirubin 1.1 mg/dL (0.2-1.0) H D 06/09/17 05:05 AST 316 U/L (15-37) H D 06/09/17 05:05 ALT 178 U/L (12-78) H D 06/09/17 05:05 Alkaline Phosphatase 182 U/L (45-117) H 06/09/17 05:05 Ammonia 82.71 umol/L (11-32) H 06/09/17 05:05 Creatine Kinase 1251 IU/L (39-308) H 06/09/17 15:20 Creatine Kinase Index 0.1 % (0.0-5.0) 06/09/17 15:20 CK-MB (CK-2) 1.358 ng/mL (0.5-3.6) 06/09/17 15:20 Troponin I 0.29 ng/ml (0.00-0.05) H D 06/09/17 15:20 B-Natriuretic Peptide 107.08 pg/ml (5-125) 06/07/17 09:30 Total Protein 6.6 g/dl (6.4-8.2) 06/09/17 05:05 Albumin 1.8 g/dl (3.4-5.0) L 06/09/17 05:05 TSH 0.36 uIU/ml (0.358-3.74) 06/08/17 05:22 Microbiology 06/08/17 18:00 Sputum - Expectorated Gram Stain - Final 06/07/17 13:20 Urine - Urine Clean Catch Urine Culture - Final NO GROWTH OBTAINED 06/07/17 08:00 Blood - Peripheral Venous Blood Culture - Preliminary NO GROWTH OBTAINED AFTER 48 HOURS, INCUBATION TO CONTINUE FOR 3 DAYS. 06/07/17 08:10 Blood - Peripheral Venous Blood Culture - Preliminary NO GROWTH OBTAINED AFTER 48 HOURS, INCUBATION TO CONTINUE FOR 3 DAYS. 06/08/17 12:00 Nasopharyngeal Swab Respiratory Syncytial Virus Ag - Final 06/07/17 13:10 Serum Legionella Serology - Preliminary 06/07/17 11:35 Urine For Antigen Detection Legionella Antigen - Final 06/07/17 11:35 Urine For Antigen Detection Streptococcus pneumoniae Antigen (M - Final 06/07/17 13:20 Nasopharyngeal Swab Influenza Types A,B Antigen (MAXIMINO) - Final 06/07/17 13:20 Nasopharyngeal Swab - Final rsv negative HIV negative hep serology negative echo normal lv fxn, no pericardial effusion CXRAY unchanged Active Medications Acetaminophen (Ofirmev Injection -) 1,000 mg IVPB Q6H PRN PRN Reason: FEVER Chlorhexidine Gluconate (Hibiclens For Decolonization -) 1 applic TP HS [facility] Last Admin: 06/08/17 21:43 Dose: 1 applic Vancomycin HCl 1,250 mg/ (Dextrose) 250 mls @ 166.667 mls/hr IVPB Q12H [facility] PRN Reason: Protocol Last Admin: 06/09/17 09:39 Dose: 166.667 mls/hr Levofloxacin (Levaquin 750 Mg Premixed Ivpb -) 750 mg in 150 mls @ 150 mls/hr IVPB Q24H [facility] Last Admin: 06/09/17 17:36 Dose: 150 mls/hr Mupirocin (Bactroban Ointment (For Decolonization) -) [address] [facility] Stop: 06/12/17 21:59 Last Admin: 06/09/17 09:31 Dose: 1 applic Oseltamivir Phosphate (Tamiflu -) [address] [facility] Stop: 06/12/17 21:59 Last Admin: 06/09/17 09:31 Dose: 75 mg Sodium Chloride ([place] Nasal [place] -) 2 spray NS TID PRN PRN Reason: NASAL CONGESTION Last Admin: 06/08/17 22:17 Dose: 2 sprays ASSESSMENT/PLAN: 47 year old M with pmh of HTN, asthma, and ETOH abuse presents with ARDS and acute hypoxic respiratory failure on Bipap. # ARDS Acute hypoxic respiratory failure ON Bipap --FiO2 70% --92% sat , but rapidly desaturates off bipap. Wean FIO2 as tolerated Aspiration precautions # MICHAEL improving / +urine output continue to monitor labs Avoid nephrotoxic medications # acute hepatic injury hep panel negative hx of ETOH use -last drink 1 week [employer] enzymes trending down ammonia level increased # ARDS possible infectious cause flu /CAP ?/ +smoker vancomycin, levaquin, and tamiflu for influenza and lung consolidations per ID follow vanco trough Problem List - Problems (1) ARDS (adult respiratory distress syndrome) Code(s): J80 - ACUTE RESPIRATORY DISTRESS SYNDROME (2) Rhabdomyolysis Code(s): M62.82 - RHABDOMYOLYSIS (3) Abnormal LFTs Code(s): R94.5 - ABNORMAL RESULTS OF LIVER FUNCTION STUDIES (4) Acute respiratory failure Code(s): J96.00 - ACUTE RESPIRATORY FAILURE, UNSP W HYPOXIA OR HYPERCAPNIA (5) Hypoxia Code(s): R09.02 - HYPOXEMIA (6) Obesity Code(s): E66.9 - OBESITY, UNSPECIFIED (7) Pneumonia Code(s): J18.9 - PNEUMONIA, UNSPECIFIED ORGANISM (8) Substance abuse Code(s): F19.10 - OTHER PSYCHOACTIVE SUBSTANCE ABUSE, UNCOMPLICATED
[2017-06-09 21:17] LABS: CHOLESTEROL 102 mg/dL (50-200); HDL CHOLESTEROL 13 mg/dL (40-60); LDL CHOLESTEROL (ONLY SJRH) 69 mg/dL (5-100); TRIGLYCERIDES 205 mg/dL (35-160)
[2017-06-09] MEDS: CHLORHEXIDINE GLUCONATE 4% CLEANSER FOR DECOLONIZATION TP SCH (21:34)
[2017-06-09] MEDS ORDERED: diazePAM CARPU-JECT 10 MG/2 ML DISP.SYRIN IVPUSH ONE (23:19)
[2017-06-09] MEDS ORDERED: LORazepam 2 MG/ML SDV VIAL ONE (23:36)
[2017-06-09] MEDS ORDERED: LORazepam 2 MG/ML SDV VIAL IVPUSH ONE (23:57)
[2017-06-10] MEDS ORDERED: ETOMIDATE 20 MG/10 ML AMPUL IVPUSH ONE (00:11)
[2017-06-10] MEDS ORDERED: LORazepam 2 MG/ML SDV VIAL IVPUSH ONE (00:12)
[2017-06-10] MEDS ORDERED: MIDAZOLAM HCL 5 MG/1 ML Single Dose Vial IVPUSH ONE ×2 (00:13)
[2017-06-10] MEDS ORDERED: ROCURONIUM BROMIDE 50 MG/5 ML VIAL IVPUSH ONE ×2 (00:14→05:44)
[2017-06-10] MEDS ORDERED: MIDAZOLAM HCL 5 MG/1 ML Single Dose Vial ONE (00:14)
[2017-06-10] MEDS ORDERED: fentaNYL CITRATE 250 MCG/5 ML VIAL ONE ×5 (00:33→18:04)
--- NOTE | 2017-06-10 00:43 | PN ---
Progress Note (short form) - Note Progress Note: Called to intubate this 47 y/o male with ARDS/acute respiratory failure. Pt. worsening with NIPPV so intubation required. After giving 200mg of propofol and 100mg of succinylcholine, pt. was intubated under direct laryngoscopy with a #8.0 endotracheal tube. +etCO2 and bilateral breath sounds were noted. ETT was secured and pt. was placed on the ventilator. Further management as per ICU team.
[2017-06-10] MEDS ORDERED: VECURONIUM BROMIDE 50 MG in DEXTROSE 5%-WATER - 250 ML IVPB SCH (01:00)
[2017-06-10] MEDS: PROPOFOL 1,000,000 MCG/100 ML VIAL IVPB SCH ×5 (01:06→17:19)
--- NOTE | 2017-06-10 01:13 | PN ---
Progress Note (short form) - Note Progress Note: 47yom with Hx smoking and ETOH abuse admitted for hypoxic respiratory failure with ARDS pattern on 06/07. He was maintained on BiPAP O2 support and being treated with Tamiflu and antibiotics for empiric CAP coverage. O/n became more restless and anxious and in distress with desaturation to 50's with removal of BiPAP mask. Anesthesia was called and he was intubated. Placed on vent settings AC/VC 100%, TV 400cc (~6cc/kg)([id number]), RR 28, PEEP 15. Initial plat pressure 27.7. Sedated with Propofol and Fent drips. O2 sat improved from 85% to 92% with rocuronium push. Post intubation hypotension to 90's-100's/ 60's. ETT and NGT confirmed with CXR. Sputum culture ordered. Antibiotics continued. Attempted to update family. No response to phone call. Vital Signs Period Temp Pulse Resp BP Sys/[place] Pulse Ox Last 24 Hr 98.8 F-101.2 F 89-138 15-34 98-180/48-117 91-95 ABG Results ABG pH 7.26 (7.35-7.45) L D 06/10/17 01:05 ABG pCO2 at Pt Temp 51.7 mmHg (35-45) H D 06/10/17 01:05 ABG pO2 at Pt Temp 112.0 mmHg (80-100) H D 06/10/17 01:05 ABG HCO3 22.3 meq/L (22-26) 06/10/17 01:05 ABG O2 Sat (Measured) 96.7 % (90-98.9) 06/10/17 01:05 ABG O2 Content 17.0 % vol (15-22) 06/10/17 01:05 ABG Base Excess -4.6 meq/l (-2-2) L 06/10/17 01:05 Current Medications Acetaminophen (Ofirmev Injection -) 1,000 mg IVPB Q6H PRN PRN Reason: FEVER Chlorhexidine Gluconate (Hibiclens For Decolonization -) 1 applic TP HS JESE Last Admin: 06/09/17 21:34 Dose: 1 applic Heparin Sodium (Porcine) (Heparin -) 5,000 unit SQ BID [facility] Vancomycin HCl 1,250 mg/ (Dextrose) 250 mls @ 166.667 mls/hr IVPB Q12H [facility] PRN Reason: Protocol Last Admin: 06/09/17 21:33 Dose: 166.667 mls/hr Levofloxacin (Levaquin 750 Mg Premixed Ivpb -) 750 mg in 150 mls @ 150 mls/hr IVPB Q24H [facility] Last Admin: 06/09/17 17:36 Dose: 150 mls/hr Propofol (Diprivan -) 1,000,000 mcg in 100 mls @ 7.973 mls/hr IVPB TITR JESE; 15 MCG/KG/MIN PRN Reason: Protocol Last Admin: 06/10/17 01:06 Dose: 47.03 mcg/kg/min, 25 mls/hr Phenylephrine HCl 20,000 mcg/ (Sodium Chloride) 250 mls @ 75 mls/hr IVPB ASDIR JESE; 100 MCG/MIN PRN Reason: Protocol Vecuronium [place] 50 mg/ (Dextrose) 250 mls @ 26.57 mls/hr IVPB TITR JESE PRN Reason: 1 MCG/KG/MIN Fentanyl 500 mcg/ Dextrose 100 mls @ 40 mls/hr IVPB TITR JESE; 200 MCG/HR PRN Reason: Protocol Stop: 06/11/17 01:14 Last Admin: 06/10/17 02:14 Dose: 40 mls/hr Mupirocin (Bactroban Ointment (For Decolonization) -) 1 applic NS BID [facility] Stop: 06/12/17 21:59 Last Admin: 06/09/17 21:34 Dose: 1 applic Oseltamivir Phosphate (Tamiflu -) 75 mg PO BID [facility] Stop: 06/12/17 21:59 Last Admin: 06/09/17 22:05 Dose: 75 mg Pantoprazole Sodium (Protonix Iv) 40 mg IVPUSH DAILY [facility] Sodium Chloride ([place] Nasal [place] -) 2 spray NS TID PRN PRN Reason: NASAL CONGESTION Last Admin: 06/08/17 22:17 Dose: 2 sprays Hypoxemic/hypercarbic respiratory failure/ARDS now intubated, sedated Plan: -LTVV for plat goal<30; ph 7.3 to 7.4 -ABG -Sedation for RASS-4 to -5 -Paralysis as needed for persistent vent synchrony and hypoxia -Diuresis as able -Tyler drip for hypotension m/l 2/2 sedation +/- sepsis -Send cultures -Continue antibiotics -Consider Dorita, proning if refractory to vent -Consider ECMO consult KO Bui CC time 35mins Problem List - Problems (1) ARDS (adult respiratory distress syndrome) Code(s): J80 - ACUTE RESPIRATORY DISTRESS SYNDROME (2) Acute respiratory failure Code(s): J96.00 - ACUTE RESPIRATORY FAILURE, UNSP W HYPOXIA OR HYPERCAPNIA (3) Cigarette nicotine dependence Code(s): F17.210 - NICOTINE DEPENDENCE, CIGARETTES, UNCOMPLICATED
[2017-06-10] MEDS ORDERED: FENTANYL INJECTION 500 MCG in DEXTROSE 5%-WATER - 90 ML IVPB SCH (01:15)
[2017-06-10 01:33] LABS: ARTERIAL BLD GAS O2 SATURATION 96.7 % (90-98.9); ARTERIAL BLOOD GAS BASE EXCESS -4.6 meq/l (-2-2); ARTERIAL BLOOD GAS PCO2 51.7 mmHg (35-45); ARTERIAL BLOOD GAS pH 7.26 (7.35-7.45)
[2017-06-10 01:35] LABS: ALLENS TEST POSITIVE
[2017-06-10] MEDS ORDERED: SODIUM CHLORIDE 500 ML IV STA (02:01)
[2017-06-10] MEDS: FENTANYL INJECTION 500 MCG in DEXTROSE 5%-WATER - 90 ML IVPB SCH ×7 (02:14→18:10)
[2017-06-10] MEDS: PHENYLEPHRINE HCL 20,000 MCG in SODIUM CHLORIDE 248 ML IVPB SCH ×2 (04:00→11:47)
[2017-06-10] MEDS ORDERED: PHENYLEPHRINE HCL 10 MG/1 ML SINGLE DOSE VIAL ONE (04:02)
[2017-06-10] MEDS ORDERED: VECURONIUM BROMIDE 10 MG VIAL ONE (05:44)
[2017-06-10] MEDS: VECURONIUM BROMIDE 50 MG in DEXTROSE 5%-WATER - 250 ML IVPB SCH ×3 (06:17→15:35)
[2017-06-10] MEDS ORDERED: VECURONIUM BROMIDE 50 MG VIAL IVPUSH ONE (06:20)
[2017-06-10 06:34] LABS: ARTERIAL BLD GAS O2 SATURATION 94.4 % (90-98.9); ARTERIAL BLOOD GAS BASE EXCESS -8.2 meq/l (-2-2); ARTERIAL BLOOD GAS PCO2 44.5 mmHg (35-45)
--- NOTE | 2017-06-10 06:42 | PN ---
Progress Note, Physician Chief Complaint: ID Had to be intubated overnight Still getting Vancomycin and Levofloxacin Some pressor on board - Current Medication List Current Medications: Active Medications Acetaminophen (Ofirmev Injection -) 1,000 mg IVPB Q6H PRN PRN Reason: FEVER Chlorhexidine Gluconate (Hibiclens For Decolonization -) 1 applic TP HS [facility] Last Admin: 06/09/17 21:34 Dose: 1 applic Heparin Sodium (Porcine) (Heparin -) 5,000 unit SQ BID [facility] Vancomycin HCl 1,250 mg/ (Dextrose) 250 mls @ 166.667 mls/hr IVPB Q12H [facility]ESE PRN Reason: Protocol Last Admin: 06/09/17 21:33 Dose: 166.667 mls/hr Levofloxacin (Levaquin 750 Mg Premixed Ivpb -) 750 mg in 150 mls @ 150 mls/hr IVPB Q24H [facility] Last Admin: 06/09/17 17:36 Dose: 150 mls/hr Propofol (Diprivan -) 1,000,000 mcg in 100 mls @ 7.973 mls/hr IVPB TITR JESE; 15 MCG/KG/MIN PRN Reason: Protocol Last Admin: 06/10/17 05:00 Dose: 50 mcg/kg/min, 26.578 mls/hr Phenylephrine HCl 20,000 mcg/ (Sodium Chloride) 250 mls @ 75 mls/hr IVPB ASDIR JESE; 100 MCG/MIN PRN Reason: Protocol Last Admin: 06/10/17 04:00 Dose: 125 mcg/min, 93.75 mls/hr Fentanyl 500 mcg/ Dextrose 100 mls @ 40 mls/hr IVPB TITR JESE; 200 MCG/HR PRN Reason: Protocol Stop: 06/11/17 01:14 Last Admin: 06/10/17 06:20 Dose: 40 mls/hr Vecuronium [place] 50 mg/ (Dextrose) 250 mls @ 53.15 mls/hr IVPB TITR JESE PRN Reason: 2 MCG/KG/MIN Last Admin: 06/10/17 06:17 Dose: 2 mcg/kg/min, 53.15 mls/hr Mupirocin (Bactroban Ointment (For Decolonization) -) 1 applic NS BID [facility] Stop: 06/12/17 21:59 Last Admin: 06/09/17 21:34 Dose: 1 applic Oseltamivir Phosphate (Tamiflu -) 75 mg PO BID [facility] Stop: 06/12/17 21:59 Last Admin: 06/09/17 22:05 Dose: 75 mg Pantoprazole Sodium (Protonix Iv) 40 mg IVPUSH DAILY [facility] Sodium Chloride ([place] Nasal [place] -) 2 spray NS TID PRN PRN Reason: NASAL CONGESTION Last Admin: 06/08/17 22:17 Dose: 2 sprays Vecuronium [place] (Vecuronium [place]) 50 mg IVPUSH ONCE ONE Stop: 06/10/17 06:21 - Objective Vital Signs: Vital Signs Temperature 99 F 06/10/17 06:00 Pulse Rate 107 H 06/10/17 06:00 Respiratory Rate 30 H 06/10/17 06:00 Blood Pressure 118/53 06/10/17 06:00 O2 Sat by Pulse Oximetry (%) 94 L 06/09/17 22:00 Constitutional: Yes: Other (INtubated) Cardiovascular: Yes: Tachycardia, S1, S2 Respiratory: Yes: WNL, Regular, CTA Bilaterally, Intubated, Rales Gastrointestinal: Yes: WNL, Normal Bowel Sounds, Soft. No: Tenderness, Tenderness, Rebound Edema: No Labs: CBC, BMP 06/09/17 05:05 06/09/17 05:05 INR, PTT INR 1.16 (0.82-1.09) H 06/07/17 08:10 Problem List - Problems (1) Viral syndrome Code(s): B34.9 - VIRAL INFECTION, UNSPECIFIED (2) ARDS (adult respiratory distress syndrome) Code(s): J80 - ACUTE RESPIRATORY DISTRESS SYNDROME (3) Acute respiratory failure Code(s): J96.00 - ACUTE RESPIRATORY FAILURE, UNSP W HYPOXIA OR HYPERCAPNIA (4) Acute kidney injury Code(s): N17.9 - ACUTE KIDNEY FAILURE, UNSPECIFIED (5) Rhabdomyolysis Code(s): M62.82 - RHABDOMYOLYSIS Assessment/Plan Microbiology 06/08/17 18:00 Sputum - Expectorated Gram Stain - Final 06/08/17 12:00 Nasopharyngeal Swab Respiratory Syncytial Virus Ag - Final 06/07/17 11:35 Urine For Antigen Detection Legionella Antigen - Final 06/07/17 11:35 Urine For Antigen Detection Streptococcus pneumoniae Antigen (M - Final 06/07/17 08:10 Blood - Peripheral Venous Blood Culture - Preliminary NO GROWTH OBTAINED AFTER 48 HOURS, INCUBATION TO CONTINUE FOR 3 DAYS. 06/07/17 08:00 Blood - Peripheral Venous Blood Culture - Preliminary NO GROWTH OBTAINED AFTER 48 HOURS, INCUBATION TO CONTINUE FOR 3 DAYS. Laboratory Tests 06/07/17 06/09/17 06/09/17 15:44 05:05 05:05 WBC 14.1 H Hgb 12.1 Plt Count 207 BUN 17 D Creatinine 1.0 D Total Bilirubin 1.1 H D AST 316 H D ALT 178 H D Alkaline Phosphatase 182 H HIV 1&2 Antibody Screen Negative HIV P24 Antigen Negative Assessment Working diagnosis is Viral pneumonia with ARDS now intubated Hepatitis possibly part of viral ilness resolving Plan Stop Vancomycin Continue the Levofloxacin CBC ESR Sputum pending but no polys seen on gram stain [place]
[2017-06-10 07:17] LABS: ALBUMIN 1.9 g/dl (3.4-5.0); ANION GAP 15 (8-16); BILIRUBIN,TOTAL 1.2 mg/dL (0.2-1.0); BLOOD UREA NITROGEN 24 mg/dL (7-18); CALCIUM 7.9 mg/dL (8.5-10.1); CHLORIDE 102 mmol/L (98-107); CO2 21 mmol/L (21-32); CREATININE 2.4 mg/dL (0.7-1.3); GLUCOSE,RANDOM 136 mg/dL (74-106); MAGNESIUM 2.8 mg/dL (1.8-2.4); PHOSPHOROUS 6.8 mg/dL (2.5-4.9); POTASSIUM 4.3 mmol/L (3.5-5.1); SGOT/AST 163 U/L (15-37); SGPT/ALT 139 U/L (12-78); SODIUM 138 mmol/L (136-145); TOT PROT 7.5 g/dl (6.4-8.2)
[2017-06-10 07:18] LABS: ALK PHOS 193 U/L (45-117)
[2017-06-10 07:36] LABS: ALLENS TEST POSITIVE
[2017-06-10 07:38] LABS: ARTERIAL BLOOD GAS pH 7.24 (7.35-7.45)
[2017-06-10 08:00] LABS: HEMATOCRIT 39.1 % (35.4-49); HEMOGLOBIN 12.6 GM/dL (11.7-16.9); MCH 30.9 pg (25.7-33.7); MCHC 32.3 g/dl (32.0-35.9); MEAN CELL VOLUME 95.5 fl (80-96); MEAN PLT VOLUME 8.7 fl (7.5-11.1); PLATELET COUNT 241 K/MM3 (134-434); RBC 4.09 M/mm3 (4.00-5.60); RDW 13.9 % (11.9-15.9); WHITE BLOOD COUNT 29.6 K/mm3 (4.0-10.0)
[2017-06-10] MEDS ORDERED: PANTOPRAZOLE SODIUM 40 MG VIAL IVPUSH SCH (10:00)
[2017-06-10] MEDS ORDERED: HEPARIN NA (PORCINE) 5,000 UNITS/ML 1ML VIAL SQ SCH (10:00)
--- NOTE | 2017-06-10 10:05 | PN ---
Progress Note, Physician History of Present Illness: 47y M hx of htn, hyperlipidemia, asthma, obesity, substance abuse (cocaine years ago; tobacoo; alcohol--last drink one week ago; ?anaboic steroids) presents with complaint of sob. Per girlfriend, the pt has been having fever and cough for about a week with alot of congestion. GF also with similar symptoms last week. Pt endorses worsening sob, and gf finally convinced him to come to the ED today. One family member is being treated for influenza. Pt denies any chest pain, leg swelling, hemoptysis, dizziness, abd pain, n/v. pt arrived with sat of 60% on RA, in mild distress, was started on NRB with improvement to 80%, started on bipap with improvement to 94% (on 04/22, 75% O2). Pts pulm exam noted for scant rales at the bsaes and deminshed breathsounds b/l abd soft notnender ddx includes pna, influenza, ?consier PE, ?underlying lung/heart dz? sepsis orderset initiated cxr continue bipap - Current Medication List Current Medications: Active Medications Acetaminophen (Ofirmev Injection -) 1,000 mg IVPB Q6H PRN PRN Reason: FEVER Last Admin: 06/10/17 09:42 Dose: 1,000 mg Chlorhexidine Gluconate (Hibiclens For Decolonization -) 1 applic TP HS JESE Last Admin: 06/09/17 21:34 Dose: 1 applic Heparin Sodium (Porcine) (Heparin -) 5,000 unit SQ BID JESE Levofloxacin (Levaquin 750 Mg Premixed Ivpb -) 750 mg in 150 mls @ 150 mls/hr IVPB Q24H JESE Last Admin: 06/09/17 17:36 Dose: 150 mls/hr Propofol (Diprivan -) 1,000,000 mcg in 100 mls @ 7.973 mls/hr IVPB TITR JESE; 15 MCG/KG/MIN PRN Reason: Protocol Last Admin: 06/10/17 07:49 Dose: 50 mcg/kg/min, 26.578 mls/hr Phenylephrine HCl 20,000 mcg/ (Sodium Chloride) 250 mls @ 75 mls/hr IVPB ASDIR JESE; 100 MCG/MIN PRN Reason: Protocol Last Titration: 06/10/17 07:47 Dose: 80 mcg/min, 60 mls/hr Fentanyl 500 mcg/ Dextrose 100 mls @ 40 mls/hr IVPB TITR JESE; 200 MCG/HR PRN Reason: Protocol Stop: 06/11/17 01:14 Last Admin: 06/10/17 08:32 Dose: 30 mls/hr Vecuronium [place] 50 mg/ (Dextrose) 250 mls @ 53.15 mls/hr IVPB TITR JESE PRN Reason: 2 MCG/KG/MIN Last Admin: 06/10/17 06:17 Dose: 2 mcg/kg/min, 53.15 mls/hr Mupirocin (Bactroban Ointment (For Decolonization) -) 1 applic NS BID JESE Stop: 06/12/17 21:59 Last Admin: 06/09/17 21:34 Dose: 1 applic Oseltamivir Phosphate (Tamiflu -) 75 mg PO BID JESE Stop: 06/12/17 21:59 Last Admin: 06/09/17 22:05 Dose: 75 mg Pantoprazole Sodium (Protonix Iv) 40 mg IVPUSH DAILY [facility] Sodium Chloride ([place] Nasal [place] -) 2 spray NS TID PRN PRN Reason: NASAL CONGESTION Last Admin: 06/08/17 22:17 Dose: 2 sprays - Objective Vital Signs: Vital Signs Temperature 99 F 06/10/17 06:00 Pulse Rate 122 H 06/10/17 07:47 Respiratory Rate 30 H 06/10/17 07:51 Blood Pressure 139/50 06/10/17 07:47 O2 Sat by Pulse Oximetry (%) 98 06/10/17 07:51 Eyes: Yes: WNL, Conjunctiva Clear, EOM Intact HENT: Yes: WNL, Atraumatic, Normocephalic Neck: Yes: WNL, Supple, Trachea Midline Cardiovascular: Yes: Regular Rate and Rhythm, Tachycardia, S1, S2 Respiratory: Yes: Diminished, Intubated, Mechanically Ventilated Gastrointestinal: Yes: WNL, Normal Bowel Sounds Genitourinary: Yes: WNL Musculoskeletal: Yes: WNL Extremities: Yes: WNL Edema: No Integumentary: Yes: WNL ...Motor Strength: WNL Psychiatric: Yes: WNL Labs: CBC, BMP 06/10/17 06:35 06/10/17 06:35 INR, PTT INR 1.16 (0.82-1.09) H 06/07/17 08:10 Laboratory Tests 06/07/17 06/07/17 06/07/17 08:10 08:10 08:10 WBC 11.4 H RBC 4.48 Hgb 13.8 Hct 40.9 MCV 91.3 MCH 30.7 MCHC 33.6 RDW 13.2 Plt Count 258 MPV 8.2 Neutrophils % 84.3 H Lymphocytes % 7.3 L Monocytes % 7.8 Eosinophils % 0.0 Basophils % 0.6 PT with INR 13.10 H INR 1.16 H PTT (Actin FS) 31.2 Puncture Site ABG pH ABG pCO2 at Pt Temp ABG pO2 at Pt Temp ABG HCO3 ABG O2 Sat (Measured) ABG O2 Content ABG Base Excess Grant Test VBG pH 7.44 H POC VBG pCO2 30.8 L POC VBG pO2 35.3 Mixed VBG HCO3 20.7 Carboxyhemoglobin Methemoglobin O2 Delivery Device Oxygen Flow Rate Vent Mode Vent Rate Mechanical Rate PEEP Pressure Support Vent Sodium Potassium Chloride Carbon Dioxide Anion Gap BUN Creatinine Creat Clearance w eGFR Random Glucose Lactic Acid Calcium Phosphorus Magnesium Total Bilirubin AST ALT Alkaline Phosphatase Ammonia Creatine Kinase Creatine Kinase Index CK-MB (CK-2) Troponin I C-Reactive Protein B-Natriuretic Peptide Total Protein Albumin Triglycerides Cholesterol Total LDL Cholesterol HDL Cholesterol TSH Urine Color Urine Appearance Urine pH Ur Specific [place] Urine Protein Urine Glucose (UA) Urine Ketones Urine Blood Urine Nitrite Urine Bilirubin Urine Urobilinogen Ur Leukocyte Esterase Urine WBC (Auto) Urine RBC (Auto) Hyaline Casts Urine Mucus Random Vancomycin Opiates Screen Methadone Screen Barbiturate Screen Phencyclidine Screen Ur Amphetamines Screen MDMA (Ecstasy) Screen Benzodiazepines Screen Cocaine Screen U Marijuana (THC) Screen Alcohol, Quantitative Hepatitis A IgM Ab Hep Bs Antigen Hep B Core IgM Ab Hepatitis C Antibody HIV 1&2 Antibody Screen HIV P24 Antigen Blood Type Antibody Screen 06/07/17 06/07/17 06/07/17 08:10 08:10 08:20 WBC RBC Hgb Hct MCV MCH MCHC RDW Plt Count MPV Neutrophils % Lymphocytes % Monocytes % Eosinophils % Basophils % PT with INR INR PTT (Actin FS) Puncture Site ABG pH ABG pCO2 at Pt Temp ABG pO2 at Pt Temp ABG HCO3 ABG O2 Sat (Measured) ABG O2 Content ABG Base Excess Grant Test VBG pH POC VBG pCO2 POC VBG pO2 Mixed VBG HCO3 Carboxyhemoglobin Methemoglobin O2 Delivery Device Oxygen Flow Rate Vent Mode Vent Rate Mechanical Rate PEEP Pressure Support Vent Sodium Potassium Chloride Carbon Dioxide Anion Gap BUN Creatinine Creat Clearance w eGFR Random Glucose Lactic Acid 2.1 H Calcium Phosphorus Magnesium Total Bilirubin AST ALT Alkaline Phosphatase Ammonia 75.5 H Creatine Kinase Creatine Kinase Index CK-MB (CK-2) Troponin I C-Reactive Protein B-Natriuretic Peptide Total Protein Albumin Triglycerides Cholesterol Total LDL Cholesterol HDL Cholesterol TSH Urine Color Urine Appearance Urine pH Ur Specific [place] Urine Protein Urine Glucose (UA) Urine Ketones Urine Blood Urine Nitrite Urine Bilirubin Urine Urobilinogen Ur Leukocyte Esterase Urine WBC (Auto) Urine RBC (Auto) Hyaline Casts Urine Mucus Random Vancomycin Opiates Screen Methadone Screen Barbiturate Screen Phencyclidine Screen Ur Amphetamines Screen MDMA (Ecstasy) Screen Benzodiazepines Screen Cocaine Screen U Marijuana (THC) Screen Alcohol, Quantitative Hepatitis A IgM Ab Hep Bs Antigen Hep B Core IgM Ab Hepatitis C Antibody HIV 1&2 Antibody Screen HIV P24 Antigen Blood Type A POSITIVE Antibody Screen Negative 06/07/17 06/07/17 06/07/17 09:00 09:30 13:15 WBC RBC Hgb Hct MCV MCH MCHC RDW Plt Count MPV Neutrophils % Lymphocytes % Monocytes % Eosinophils % Basophils % PT with INR INR PTT (Actin FS) Puncture Site Left radial ABG pH 7.49 H ABG pCO2 at Pt Temp 24.3 L ABG pO2 at Pt Temp 54.8 L ABG HCO3 18.5 L ABG O2 Sat (Measured) 88.1 L ABG O2 Content 17.8 ABG Base Excess -2.7 L Grant Test Positive VBG pH POC VBG pCO2 POC VBG pO2 Mixed VBG HCO3 Carboxyhemoglobin 1.6 Methemoglobin 0.9 O2 Delivery Device Bipap Oxygen Flow Rate 75% Vent Mode S/t Vent Rate 10 Mechanical Rate Bipap PEEP Pressure Support Vent 12/6 Sodium 127 L Potassium 3.6 Chloride 94 L Carbon Dioxide 20 L Anion Gap 13 BUN 42 H Creatinine 2.1 H Creat Clearance w eGFR 34.02 Random Glucose 136 H Lactic Acid 1.7 Calcium 7.2 L Phosphorus Magnesium Total Bilirubin 1.0 AST 869 H ALT 326 H Alkaline Phosphatase 180 H Ammonia Creatine Kinase 6546 H Creatine Kinase Index 0.0 CK-MB (CK-2) < 1.0 Troponin I 0.06 H C-Reactive Protein B-Natriuretic Peptide 107.08 Total Protein 7.1 Albumin 2.4 L Triglycerides Cholesterol Total LDL Cholesterol HDL Cholesterol TSH Urine Color Urine Appearance Urine pH Ur Specific [place] Urine Protein Urine Glucose (UA) Urine Ketones Urine Blood Urine Nitrite Urine Bilirubin Urine Urobilinogen Ur Leukocyte Esterase Urine WBC (Auto) Urine RBC (Auto) Hyaline Casts Urine Mucus Random Vancomycin Opiates Screen Methadone Screen Barbiturate Screen Phencyclidine Screen Ur Amphetamines Screen MDMA (Ecstasy) Screen Benzodiazepines Screen Cocaine Screen U Marijuana (THC) Screen Alcohol, Quantitative Hepatitis A IgM Ab Hep Bs Antigen Hep B Core IgM Ab Hepatitis C Antibody HIV 1&2 Antibody Screen HIV P24 Antigen Blood Type Antibody Screen 06/07/17 06/07/17 06/07/17 13:20 13:20 14:25 WBC RBC Hgb Hct MCV MCH MCHC RDW Plt Count MPV Neutrophils % Lymphocytes % Monocytes % Eosinophils % Basophils % PT with INR INR PTT (Actin FS) Puncture Site ABG pH ABG pCO2 at Pt Temp ABG pO2 at Pt Temp ABG HCO3 ABG O2 Sat (Measured) ABG O2 Content ABG Base Excess Grant Test VBG pH POC VBG pCO2 POC VBG pO2 Mixed VBG HCO3 Carboxyhemoglobin Methemoglobin O2 Delivery Device Oxygen Flow Rate Vent Mode Vent Rate Mechanical Rate PEEP Pressure Support Vent Sodium Potassium Chloride Carbon Dioxide Anion Gap BUN Creatinine Creat Clearance w eGFR Random Glucose Lactic Acid Calcium Phosphorus Magnesium Total Bilirubin AST ALT Alkaline Phosphatase Ammonia Creatine Kinase Creatine Kinase Index CK-MB (CK-2) Troponin I C-Reactive Protein B-Natriuretic Peptide Total Protein Albumin Triglycerides Cholesterol Total LDL Cholesterol HDL Cholesterol TSH Urine Color Yellow Urine Appearance Slcloudy Urine pH 5.0 Ur Specific [place] 1.010 Urine Protein 2+ H Urine Glucose (UA) Negative Urine Ketones Negative Urine Blood 3+ H Urine Nitrite Negative Urine Bilirubin Negative Urine Urobilinogen Negative Ur Leukocyte Esterase Negative Urine WBC (Auto) None Urine RBC (Auto) 1 Hyaline Casts 1 Urine Mucus Rare Random Vancomycin Opiates Screen Negative Methadone Screen Negative Barbiturate Screen Negative Phencyclidine Screen Negative Ur Amphetamines Screen Negative MDMA (Ecstasy) Screen Negative Benzodiazepines Screen Negative Cocaine Screen Negative U Marijuana (THC) Screen Negative Alcohol, Quantitative < 5.0 Hepatitis A IgM Ab Hep Bs Antigen Hep B Core IgM Ab Hepatitis C Antibody HIV 1&2 Antibody Screen HIV P24 Antigen Blood Type Antibody Screen 06/07/17 06/07/17 06/07/17 15:44 15:44 15:44 WBC RBC Hgb Hct MCV MCH MCHC RDW Plt Count MPV Neutrophils % Lymphocytes % Monocytes % Eosinophils % Basophils % PT with INR INR PTT (Actin FS) Puncture Site ABG pH ABG pCO2 at Pt Temp ABG pO2 at Pt Temp ABG HCO3 ABG O2 Sat (Measured) ABG O2 Content ABG Base Excess [place] Test VBG pH POC VBG pCO2 POC VBG pO2 Mixed VBG HCO3 Carboxyhemoglobin Methemoglobin O2 Delivery Device Oxygen Flow Rate Vent Mode Vent Rate Mechanical Rate PEEP Pressure Support Vent Sodium 134 L Potassium 3.7 Chloride 101 Carbon Dioxide 23 Anion Gap 10 BUN 40 H Creatinine 1.9 H Creat Clearance w eGFR 38.19 Random Glucose 107 H D Lactic Acid Calcium 6.9 L* Phosphorus Magnesium Total Bilirubin 0.8 AST 625 H D ALT 249 H D Alkaline Phosphatase 153 H Ammonia Creatine Kinase 5509 H Creatine Kinase Index 0.1 CK-MB (CK-2) 2.318 Troponin I C-Reactive Protein B-Natriuretic Peptide Total Protein 6.0 L Albumin 2.0 L Triglycerides Cholesterol Total LDL Cholesterol HDL Cholesterol TSH Urine Color Urine Appearance Urine pH Ur Specific [place] Urine Protein Urine Glucose (UA) Urine Ketones Urine Blood Urine Nitrite Urine Bilirubin Urine Urobilinogen Ur Leukocyte Esterase Urine WBC (Auto) Urine RBC (Auto) Hyaline Casts Urine Mucus Random Vancomycin 12.531 Opiates Screen Methadone Screen Barbiturate Screen Phencyclidine Screen Ur Amphetamines Screen MDMA (Ecstasy) Screen Benzodiazepines Screen Cocaine Screen U Marijuana (THC) Screen Alcohol, Quantitative Hepatitis A IgM Ab Hep Bs Antigen Hep B Core IgM Ab Hepatitis C Antibody HIV 1&2 Antibody Screen Negative HIV P24 Antigen Negative Blood Type Antibody Screen 06/07/17 06/07/17 06/08/17 15:44 15:44 05:22 WBC 11.0 H 13.3 H RBC 3.99 L 4.22 Hgb 12.4 D 13.2 Hct 37.1 39.2 MCV 92.9 92.9 MCH 31.2 31.2 MCHC 33.6 33.6 RDW 13.4 13.2 Plt Count 220 251 MPV 8.4 8.5 Neutrophils % 81.3 Lymphocytes % 10.7 D Monocytes % 7.7 Eosinophils % 0.0 Basophils % 0.3 PT with INR INR PTT (Actin FS) Puncture Site ABG pH ABG pCO2 at Pt Temp ABG pO2 at Pt Temp ABG HCO3 ABG O2 Sat (Measured) ABG O2 Content ABG Base Excess Grant Test VBG pH POC VBG pCO2 POC VBG pO2 Mixed VBG HCO3 Carboxyhemoglobin Methemoglobin O2 Delivery Device Oxygen Flow Rate Vent Mode Vent Rate Mechanical Rate PEEP Pressure Support Vent Sodium Potassium Chloride Carbon Dioxide Anion Gap BUN Creatinine Creat Clearance w eGFR Random Glucose Lactic Acid Calcium Phosphorus Magnesium Total Bilirubin AST ALT Alkaline Phosphatase Ammonia Creatine Kinase Creatine Kinase Index CK-MB (CK-2) Troponin I C-Reactive Protein B-Natriuretic Peptide Total Protein Albumin Triglycerides Cholesterol Total LDL Cholesterol HDL Cholesterol TSH Urine Color Urine Appearance Urine pH Ur Specific [place] Urine Protein Urine Glucose (UA) Urine Ketones Urine Blood Urine Nitrite Urine Bilirubin Urine Urobilinogen Ur Leukocyte Esterase Urine WBC (Auto) Urine RBC (Auto) Hyaline Casts Urine Mucus Random Vancomycin Opiates Screen Methadone Screen Barbiturate Screen Phencyclidine Screen Ur Amphetamines Screen MDMA (Ecstasy) Screen Benzodiazepines Screen Cocaine Screen U Marijuana (THC) Screen Alcohol, Quantitative Hepatitis A IgM Ab Negative Hep Bs Antigen Negative Hep B Core IgM Ab Negative Hepatitis C Antibody <0.1 HIV 1&2 Antibody Screen HIV P24 Antigen Blood Type Antibody Screen 06/08/17 06/08/17 06/09/17 05:22 05:22 05:05 WBC 14.1 H RBC 3.87 L Hgb 12.1 Hct 35.6 MCV 92.0 MCH 31.2 MCHC 33.9 RDW 13.4 Plt Count 207 MPV 8.5 Neutrophils % 91.4 H Lymphocytes % 5.1 L D Monocytes % 3.3 L Eosinophils % 0.1 D Basophils % 0.1 PT with INR INR PTT (Actin FS) Puncture Site ABG pH ABG pCO2 at Pt Temp ABG pO2 at Pt Temp ABG HCO3 ABG O2 Sat (Measured) ABG O2 Content ABG Base Excess Grant Test VBG pH POC VBG pCO2 POC VBG pO2 Mixed VBG HCO3 Carboxyhemoglobin Methemoglobin O2 Delivery Device Oxygen Flow Rate Vent Mode Vent Rate Mechanical Rate PEEP Pressure Support Vent Sodium 137 Potassium 3.7 Chloride 105 Carbon Dioxide 21 Anion Gap 11 BUN 29 H D Creatinine 1.3 D Creat Clearance w eGFR 59.17 Random Glucose 96 Lactic Acid Calcium 7.3 L Phosphorus 2.8 Magnesium 2.8 H Total Bilirubin 0.8 AST 500 H ALT 227 H Alkaline Phosphatase 163 H Ammonia Creatine Kinase Creatine Kinase Index CK-MB (CK-2) Troponin I C-Reactive Protein B-Natriuretic Peptide Total Protein 6.7 Albumin 2.1 L Triglycerides Cholesterol Total LDL Cholesterol HDL Cholesterol TSH 0.36 Cancelled Urine Color Urine Appearance Urine pH Ur Specific [place] Urine Protein Urine Glucose (UA) Urine Ketones Urine Blood Urine Nitrite Urine Bilirubin Urine Urobilinogen Ur Leukocyte Esterase Urine WBC (Auto) Urine RBC (Auto) Hyaline Casts Urine Mucus Random Vancomycin Opiates Screen Methadone Screen Barbiturate Screen Phencyclidine Screen Ur Amphetamines Screen MDMA (Ecstasy) Screen Benzodiazepines Screen Cocaine Screen U Marijuana (THC) Screen Alcohol, Quantitative Hepatitis A IgM Ab Hep Bs Antigen Hep B Core IgM Ab Hepatitis C Antibody HIV 1&2 Antibody Screen HIV P24 Antigen Blood Type Antibody Screen 06/09/17 06/09/17 06/09/17 05:05 05:05 15:20 WBC RBC Hgb Hct MCV MCH MCHC RDW Plt Count MPV Neutrophils % Lymphocytes % Monocytes % Eosinophils % Basophils % PT with INR INR PTT (Actin FS) Puncture Site ABG pH ABG pCO2 at Pt Temp ABG pO2 at Pt Temp ABG HCO3 ABG O2 Sat (Measured) ABG O2 Content ABG Base Excess [place] Test VBG pH POC VBG pCO2 POC VBG pO2 Mixed VBG HCO3 Carboxyhemoglobin Methemoglobin O2 Delivery Device Oxygen Flow Rate Vent Mode Vent Rate Mechanical Rate PEEP Pressure Support Vent Sodium 137 Potassium 3.4 L Chloride 104 Carbon Dioxide 24 Anion Gap 9 BUN 17 D Creatinine 1.0 D Creat Clearance w eGFR > 60 Random Glucose 105 Lactic Acid Calcium 7.4 L Phosphorus 2.6 Magnesium 2.3 Total Bilirubin 1.1 H D AST 316 H D ALT 178 H D Alkaline Phosphatase 182 H Ammonia 82.71 H Creatine Kinase Creatine Kinase Index CK-MB (CK-2) Troponin I C-Reactive Protein B-Natriuretic Peptide Total Protein 6.6 Albumin 1.8 L Triglycerides 205 H Cholesterol 102 Total LDL Cholesterol 69 HDL Cholesterol 13 L TSH Urine Color Urine Appearance Urine pH Ur Specific [place] Urine Protein Urine Glucose (UA) Urine Ketones Urine Blood Urine Nitrite Urine Bilirubin Urine Urobilinogen Ur Leukocyte Esterase Urine WBC (Auto) Urine RBC (Auto) Hyaline Casts Urine Mucus Random Vancomycin Opiates Screen Methadone Screen Barbiturate Screen Phencyclidine Screen Ur Amphetamines Screen MDMA (Ecstasy) Screen Benzodiazepines Screen Cocaine Screen U Marijuana (THC) Screen Alcohol, Quantitative Hepatitis A IgM Ab Hep Bs Antigen Hep B Core IgM Ab Hepatitis C Antibody HIV 1&2 Antibody Screen HIV P24 Antigen Blood Type Antibody Screen 06/09/17 06/10/17 06/10/17 15:20 01:05 06:15 WBC RBC Hgb Hct MCV MCH MCHC RDW Plt Count MPV Neutrophils % Lymphocytes % Monocytes % Eosinophils % Basophils % PT with INR INR PTT (Actin FS) Puncture Site Right radial Left radial ABG pH 7.26 L D 7.24 L* ABG pCO2 at Pt Temp 51.7 H D 44.5 ABG pO2 at Pt Temp 112.0 H D 89.0 D ABG HCO3 22.3 18.5 L ABG O2 Sat (Measured) 96.7 94.4 ABG O2 Content 17.0 16.3 ABG Base Excess -4.6 L -8.2 L Grant Test Positive Positive VBG pH POC VBG pCO2 POC VBG pO2 Mixed VBG HCO3 Carboxyhemoglobin Methemoglobin O2 Delivery Device Mech Mec vent Oxygen Flow Rate 100% 100% Vent Mode A/c A/c Vent Rate 22 30 Mechanical Rate PEEP 15.0 15.0 Pressure Support Vent 400 400 Sodium Potassium Chloride Carbon Dioxide Anion Gap BUN Creatinine Creat Clearance w eGFR Random Glucose Lactic Acid Calcium Phosphorus Magnesium Total Bilirubin AST ALT Alkaline Phosphatase Ammonia Creatine Kinase 1251 H Creatine Kinase Index 0.1 CK-MB (CK-2) 1.358 Troponin I 0.29 H D C-Reactive Protein B-Natriuretic Peptide Total Protein Albumin Triglycerides Cholesterol Total LDL Cholesterol HDL Cholesterol TSH Urine Color Urine Appearance Urine pH Ur Specific [place] Urine Protein Urine Glucose (UA) Urine Ketones Urine Blood Urine Nitrite Urine Bilirubin Urine Urobilinogen Ur Leukocyte Esterase Urine WBC (Auto) Urine RBC (Auto) Hyaline Casts Urine Mucus Random Vancomycin Opiates Screen Methadone Screen Barbiturate Screen Phencyclidine Screen Ur Amphetamines Screen MDMA (Ecstasy) Screen Benzodiazepines Screen Cocaine Screen U Marijuana (THC) Screen Alcohol, Quantitative Hepatitis A IgM Ab Hep Bs Antigen Hep B Core IgM Ab Hepatitis C Antibody HIV 1&2 Antibody Screen HIV P24 Antigen Blood Type Antibody Screen 06/10/17 06/10/17 06/10/17 06:35 06:35 06:35 WBC 29.6 H D RBC 4.09 Hgb 12.6 Hct 39.1 MCV 95.5 MCH 30.9 MCHC 32.3 RDW 13.9 Plt Count 241 MPV 8.7 Neutrophils % No Result Required. Lymphocytes % No Result Required. Monocytes % Eosinophils % Basophils % PT with INR INR PTT (Actin FS) Puncture Site ABG pH ABG pCO2 at Pt Temp ABG pO2 at Pt Temp ABG HCO3 ABG O2 Sat (Measured) ABG O2 Content ABG Base Excess Grant Test VBG pH POC VBG pCO2 POC VBG pO2 Mixed VBG HCO3 Carboxyhemoglobin Methemoglobin O2 Delivery Device Oxygen Flow Rate Vent Mode Vent Rate Mechanical Rate PEEP Pressure Support Vent Sodium 138 Potassium 4.3 D Chloride 102 Carbon Dioxide 21 Anion Gap 15 BUN 24 H D Creatinine 2.4 H D Creat Clearance w eGFR 29.16 Random Glucose 136 H D Lactic Acid Calcium 7.9 L Phosphorus 6.8 H D Magnesium 2.8 H D Total Bilirubin 1.2 H AST 163 H D ALT 139 H D Alkaline Phosphatase 193 H Ammonia Creatine Kinase Creatine Kinase Index CK-MB (CK-2) Troponin I C-Reactive Protein Cancelled B-Natriuretic Peptide Total Protein 7.5 Albumin 1.9 L Triglycerides Cholesterol Total LDL Cholesterol HDL Cholesterol TSH Urine Color Urine Appearance Urine pH Ur Specific [place] Urine Protein Urine Glucose (UA) Urine Ketones Urine Blood Urine Nitrite Urine Bilirubin Urine Urobilinogen Ur Leukocyte Esterase Urine WBC (Auto) Urine RBC (Auto) Hyaline Casts Urine Mucus Random Vancomycin Opiates Screen Methadone Screen Barbiturate Screen Phencyclidine Screen Ur Amphetamines Screen MDMA (Ecstasy) Screen Benzodiazepines Screen Cocaine Screen U Marijuana (THC) Screen Alcohol, Quantitative Hepatitis A IgM Ab Hep Bs Antigen Hep B Core IgM Ab Hepatitis C Antibody HIV 1&2 Antibody Screen HIV P24 Antigen Blood Type Antibody Screen Assessment/Plan - Problems (1) Substance abuse Assessment/Plan: as per pt's PMD (Dr. Mayo), pt may have, in years past, used cocaine. He drinks heavily at times, is a daily cigarettes smoker. 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 He has been noncompliant to doctors' visits and medications. Code(s): F19.10 - OTHER PSYCHOACTIVE SUBSTANCE ABUSE, UNCOMPLICATED (2) ARDS (adult respiratory distress syndrome) Assessment/Plan: On Bipap, with marked and immediate desaturation when mask is even temporarily removed. On Tamiflu for influenza; on Vancomycin and Levoquin. WBC remain elevated. ECHO: normal LVEF; normal chamber sizes; no valvular abnormalities. Code(s): J80 - ACUTE RESPIRATORY DISTRESS SYNDROME (3) Hyponatremia Assessment/Plan: now normal level. Code(s): E87.1 - HYPO-OSMOLALITY AND HYPONATREMIA (4) Rhabdomyolysis Assessment/Plan: decreasing CK; low CK/MB relative index. BUN/Cr have also improved. Code(s): M62.82 - RHABDOMYOLYSIS (5) Obesity Code(s): E66.9 - OBESITY, UNSPECIFIED (6) Congestive cardiac failure Assessment/Plan: Enlarged heart with ?LV dilation on CT chest. BNP 107; ECHO: normal LVEF; normal chamber sizes; no valvular abnormalities. TNI 0.06-->0.29. Total cholesterol 102 mg/dL; triglycerides 205. TSH: 0.36. Extensive coronary artery calcifications on CT chest, with multiple cardiac risks, including his father dying at 47 yrs old of "heart disease"; will require coronary artery evaluation with stress test and/or angiogram when stable. Code(s): I50.9 - HEART FAILURE, UNSPECIFIED Qualifiers: Congestive heart failure type: unspecified Congestive heart failure chronicity: unspecified Qualified Code(s): I50.9 - Heart failure, unspecified (7) Cigarette nicotine dependence Assessment/Plan: Pt has not smoked for a week; consider aid with patch or pill. Code(s): F17.210 - NICOTINE DEPENDENCE, CIGARETTES, UNCOMPLICATED (8) [place] cardiac risk >20% in next 10 years Assessment/Plan: Coronary artery evaluation with stress MIBI and/or coronary angiogram when stable. Aggressive lipid control; diet change to heart-healthy one, with weight loss; BP control; treatment for substance abuse (including alcohol). Code(s): Z91.89 - OTH PERSONAL RISK FACTORS, NOT ELSEWHERE CLASSIFIED (9) Hyperglycemia Assessment/Plan: f/u fasting glucose, HGBA1c. Code(s): R73.9 - HYPERGLYCEMIA, UNSPECIFIED (10) Renal insufficiency Assessment/Plan: on fluids (problematic with pulmonary status) Improving BUN/Cr; f/u Is and Os.. Code(s): N28.9 - DISORDER OF KIDNEY AND URETER, UNSPECIFIED (11) Elevated LFTs Code(s): R79.89 - OTHER SPECIFIED ABNORMAL FINDINGS OF BLOOD CHEMISTRY (12) Hypoalbuminemia Code(s): E88.09 - OTH DISORDERS OF PLASMA-PROTEIN METABOLISM, NEC (13) Hypokalemia Assessment/Plan: replete, and maintain 4-4.5. Code(s): E87.6 - HYPOKALEMIA viral pna ARDS septic shock, s tachycardia intubated overnight cont abx respiratory support and pressors prognosis is guarded cc time 37 min
[2017-06-10] MEDS ORDERED: PT OWN MED DRAWER 7, Y5N ONE ×2 (10:18→17:16)
[2017-06-10] MEDS: MUPIROCIN 2% TOPICAL OINTMENT FOR DECOLONIZATION NS SCH (10:19)
[2017-06-10] MEDS: OSELTAMIVIR PHOSPHATE 75 MG CAPSULE PO SCH (10:19)
[2017-06-10 11:38] LABS: ACANTHOCYTES 0; ANISOCYTOSIS 0; HELMET CELLS 0; HOWELL-JOLLY BODIES 0; MACROCYTOSIS 0; OVALOCYTE 0; PLATELET ESTIMATE NORMAL; ROULEAU 0; SICKELED CELLS 0; TARGET CELLS 0; TEAR DROP CELLS 0; TOXIC GRANULATION 0
[2017-06-10 12:07] LABS: ARTERIAL BLD GAS O2 SATURATION 93.2 % (90-98.9); ARTERIAL BLOOD GAS PO2 99.5 mmHg (80-100)
[2017-06-10 12:20] LABS: ALLENS TEST POSITIVE
[2017-06-10 12:23] LABS: ARTERIAL BLOOD GAS pH 7.01 (7.35-7.45)
--- NOTE | 2017-06-10 13:15 | PN ---
Teaching Attending Note Name of Resident: Eren Alvarez ATTENDING PHYSICIAN STATEMENT I saw and evaluated the patient. I reviewed the resident's note and discussed the case with the resident. I agree with the resident's findings and plan as documented. SUBJECTIVE: Pt seen and examined in the ICU. Overnight events noted, pt now intubated, sedated, paralyzed on vecuronium gtt. Vented on volume assist control with 100% FiO2 and PEEP 15. OBJECTIVE: Last Vital Signs Temp Pulse Resp BP Pulse Ox 102.8 F H 136 H 20 101/79 98 06/10/17 10:00 06/10/17 10:00 06/10/17 11:26 06/10/17 11:47 06/10/17 08:40 Intake & Output 06/07/17 06/08/17 06/09/17 06/10/17 23:59 23:59 23:59 23:59 Intake Total 1800 1170 1200 1043 Output Total 2400 3100 1800 200 Balance -600 -1930 -600 843 Weight 91.257 kg 91.308 kg 88.592 kg 88 kg Gen: intubated, sedated, paralyzed Heart: tachycardic, regular Lung: scattered rhonchi Abd: soft, nontender Ext: trace edema CBC, BMP 06/10/17 06:35 06/10/17 06:35 Active Medications Acetaminophen (Ofirmev Injection -) 1,000 mg IVPB Q6H PRN PRN Reason: FEVER Last Admin: 06/10/17 09:42 Dose: 1,000 mg Chlorhexidine Gluconate (Hibiclens For Decolonization -) 1 applic TP HS JESE Last Admin: 06/09/17 21:34 Dose: 1 applic Heparin Sodium (Porcine) (Heparin -) 5,000 unit SQ BID JESE Last Admin: 06/10/17 10:16 Dose: 5,000 unit Levofloxacin (Levaquin 750 Mg Premixed Ivpb -) 750 mg in 150 mls @ 150 mls/hr IVPB Q24H JESE Last Admin: 06/09/17 17:36 Dose: 150 mls/hr Propofol (Diprivan -) 1,000,000 mcg in 100 mls @ 7.973 mls/hr IVPB TITR JESE; 15 MCG/KG/MIN PRN Reason: Protocol Last Admin: 06/10/17 11:47 Dose: 50 mcg/kg/min, 26.578 mls/hr Phenylephrine HCl 20,000 mcg/ (Sodium Chloride) 250 mls @ 75 mls/hr IVPB ASDIR JESE; 100 MCG/MIN PRN Reason: Protocol Last Admin: 06/10/17 11:47 Dose: 60 mcg/min, 45 mls/hr Fentanyl 500 mcg/ Dextrose 100 mls @ 40 mls/hr IVPB TITR JESE; 200 MCG/HR PRN Reason: Protocol Stop: 06/11/17 01:14 Last Admin: 06/10/17 08:32 Dose: 30 mls/hr Vecuronium [place] 50 mg/ (Dextrose) 250 mls @ 53.15 mls/hr IVPB TITR JESE PRN Reason: 2 MCG/KG/MIN Last Admin: 06/10/17 12:23 Dose: 2 mcg/kg/min, 53.15 mls/hr Mupirocin (Bactroban Ointment (For Decolonization) -) 1 applic NS BID [facility] Stop: 06/12/17 21:59 Last Admin: 06/10/17 10:19 Dose: 1 applic Oseltamivir Phosphate (Tamiflu -) 75 mg PO BID [facility] Stop: 06/12/17 21:59 Last Admin: 06/10/17 10:19 Dose: 75 mg Pantoprazole Sodium (Protonix Iv) 40 mg IVPUSH DAILY [facility] Last Admin: 06/10/17 10:16 Dose: 40 mg Sodium Chloride ([place] Nasal [place] -) 2 spray NS TID PRN PRN Reason: NASAL CONGESTION Last Admin: 06/08/17 22:17 Dose: 2 sprays ASSESSMENT AND PLAN: Acute Hypoxic Respiratory Failure r/o Influenza Multilobar Pneumonia Severe Sepsis ARDS Acute Kidney Injury Lactic Acidosis Elevated LFTs likely ischemic injury +Troponins likely Demand Ischemia HTN Asthma Alcohol Abuse - antibiotics, tamiflu per ID - f/u cultures - low tidal volume ventilation, keep Pplat <30 - titrate FiO2, PEEP to keep SpO2 >88% - allow permissive hypercapnea - will place central line - monitor urine output, creatinine - trend LFTs, cardiac enzymes - sedate, paralyze for vent synchrony - not a candidate for weaning at this time - call out for transfer to tertiary care for nitric oxide/ECMO consideration additional critical care time spent in reviewing chart, evaluating patient and formulating plan 65 min
--- NOTE | 2017-06-10 13:39 | PN ---
Progress Note (short form) - Note Progress Note: patient seen and examined in ICU Intubated /sedated / GF and mother at bedside extensive discussion with family regarding current condition / plans for transfer to [place] have discussed management / critical condition of patient all questions answered / all concerns addressed Vital Signs Intake & Output 06/07/17 06/08/17 06/09/17 06/10/17 23:59 23:59 23:59 23:59 Intake Total 1800 1170 1200 1043 Output Total 2400 3100 1800 200 Balance -600 -1930 -600 843 Weight 201 lb 3 oz 201 lb 4.8 oz 195 lb 5 oz 194 lb 0.108 oz ABG Results ABG pH 7.01 (7.35-7.45) L* D 06/10/17 11:55 ABG pCO2 at Pt Temp 88.1 mmHg (35-45) H* D 06/10/17 11:55 ABG pO2 at Pt Temp 99.5 mmHg (80-100) 06/10/17 11:55 ABG HCO3 21.2 meq/L (22-26) L 06/10/17 11:55 ABG O2 Sat (Measured) 93.2 % (90-98.9) 06/10/17 11:55 ABG O2 Content 17.2 % vol (15-22) 06/10/17 11:55 ABG Base Excess -12.3 meq/l (-2-2) L* 06/10/17 11:55 intubated A/C FiO2 100 % PEEP8 resp 20 Period Temp Pulse Resp BP Sys/Campoverde Pulse Ox Last 24 Hr 98.8 F-102.8 F 91-138 15-34 98-180/48-117 91-98 T Max 103.5 sedated /paralyzed / intubated no pressors neck -jvd heart S1/S2 Lungs grossly clear some scattered rhonchi abd soft non tender / madrigal in ploace ext trace edema CBC, BMP 06/10/17 06:35 06/10/17 06:35 CMP Sodium 138 mmol/L (136-145) 06/10/17 06:35 Potassium 4.3 mmol/L (3.5-5.1) D 06/10/17 06:35 Chloride 102 mmol/L (98-107) 06/10/17 06:35 Carbon Dioxide 21 mmol/L (21-32) 06/10/17 06:35 Anion Gap 15 (8-16) 06/10/17 06:35 BUN 24 mg/dL (7-18) H D 06/10/17 06:35 Creatinine 2.4 mg/dL (0.7-1.3) H D 06/10/17 06:35 Creat Clearance w eGFR 29.16 (>60) 06/10/17 06:35 Random Glucose 136 mg/dL (74-106) H D 06/10/17 06:35 Lactic Acid 1.7 mmol/L (0.0-2.0) 06/07/17 13:15 Calcium 7.9 mg/dL (8.5-10.1) L 06/10/17 06:35 Phosphorus 6.8 mg/dL (2.5-4.9) H D 06/10/17 06:35 Magnesium 2.8 mg/dL (1.8-2.4) H D 06/10/17 06:35 Total Bilirubin 1.2 mg/dL (0.2-1.0) H 06/10/17 06:35 AST 163 U/L (15-37) H D 06/10/17 06:35 ALT 139 U/L (12-78) H D 06/10/17 06:35 Alkaline Phosphatase 193 U/L (45-117) H 06/10/17 06:35 Ammonia 82.71 umol/L (11-32) H 06/09/17 05:05 Creatine Kinase 884 IU/L (39-308) H 06/10/17 06:35 Creatine Kinase Index 0.3 % (0.0-5.0) 06/10/17 06:35 CK-MB (CK-2) 3.25 ng/mL (0.5-3.6) 06/10/17 06:35 Troponin I 1.79 ng/ml (0.00-0.05) H* D 06/10/17 06:35 C-Reactive Protein 24.1 MG/DL (0.00-0.3) H 06/10/17 06:35 B-Natriuretic Peptide 107.08 pg/ml (5-125) 06/07/17 09:30 Total Protein 7.5 g/dl (6.4-8.2) 06/10/17 06:35 Albumin 1.9 g/dl (3.4-5.0) L 06/10/17 06:35 Triglycerides 205 mg/dL (35-160) H 06/09/17 15:20 Cholesterol 102 mg/dL (50-200) 06/09/17 15:20 Total LDL Cholesterol 69 mg/dL (5-100) 06/09/17 15:20 HDL Cholesterol 13 mg/dL (40-60) L 06/09/17 15:20 TSH 0.36 uIU/ml (0.358-3.74) 06/08/17 05:22 Microbiology 06/08/17 18:00 Sputum - Expectorated Gram Stain - Final 06/08/17 18:00 Sputum - Expectorated Sputum Culture - Preliminary Non Lactose Fermenting Gnb Pending Organism 06/07/17 08:10 Blood - Peripheral Venous Blood Culture - Preliminary NO GROWTH OBTAINED AFTER 72 HOURS, INCUBATION TO CONTINUE FOR 2 DAYS. 06/07/17 08:00 Blood - Peripheral Venous Blood Culture - Preliminary NO GROWTH OBTAINED AFTER 72 HOURS, INCUBATION TO CONTINUE FOR 2 DAYS. 06/07/17 13:20 Urine - Urine Clean Catch Urine Culture - Final NO GROWTH OBTAINED 06/08/17 12:00 Nasopharyngeal Swab Respiratory Syncytial Virus Ag - Final 06/07/17 13:10 Serum Legionella Serology - Preliminary 06/07/17 11:35 Urine For Antigen Detection Legionella Antigen - Final 06/07/17 11:35 Urine For Antigen Detection Streptococcus pneumoniae Antigen (M - Final 06/07/17 13:20 Nasopharyngeal Swab Influenza Types A,B Antigen (MAXIMINO) - Final 06/07/17 13:20 Nasopharyngeal Swab - Final Active Medications Acetaminophen (Ofirmev Injection -) 1,000 mg IVPB Q6H PRN PRN Reason: FEVER Last Admin: 06/10/17 09:42 Dose: 1,000 mg Chlorhexidine Gluconate (Hibiclens For Decolonization -) 1 applic TP HS JESE Last Admin: 06/09/17 21:34 Dose: 1 applic Heparin Sodium (Porcine) (Heparin -) 5,000 unit SQ BID JESE Last Admin: 06/10/17 10:16 Dose: 5,000 unit Levofloxacin (Levaquin 750 Mg Premixed Ivpb -) 750 mg in 150 mls @ 150 mls/hr IVPB Q24H JESE Last Admin: 06/09/17 17:36 Dose: 150 mls/hr Propofol (Diprivan -) 1,000,000 mcg in 100 mls @ 7.973 mls/hr IVPB TITR JESE; 15 MCG/KG/MIN PRN Reason: Protocol Last Admin: 06/10/17 11:47 Dose: 50 mcg/kg/min, 26.578 mls/hr Phenylephrine HCl 20,000 mcg/ (Sodium Chloride) 250 mls @ 75 mls/hr IVPB ASDIR JESE; 100 MCG/MIN PRN Reason: Protocol Last Admin: 06/10/17 11:47 Dose: 60 mcg/min, 45 mls/hr Fentanyl 500 mcg/ Dextrose 100 mls @ 40 mls/hr IVPB TITR JESE; 200 MCG/HR PRN Reason: Protocol Stop: 06/11/17 01:14 Last Admin: 06/10/17 08:32 Dose: 30 mls/hr Vecuronium [place] 50 mg/ (Dextrose) 250 mls @ 53.15 mls/hr IVPB TITR JESE PRN Reason: 2 MCG/KG/MIN Last Admin: 06/10/17 12:23 Dose: 2 mcg/kg/min, 53.15 mls/hr Mupirocin (Bactroban Ointment (For Decolonization) -) 1 applic NS BID [facility] Stop: 06/12/17 21:59 Last Admin: 06/10/17 10:19 Dose: 1 applic Oseltamivir Phosphate (Tamiflu -) 75 mg PO BID [facility] Stop: 06/12/17 21:59 Last Admin: 06/10/17 10:19 Dose: 75 mg Pantoprazole Sodium (Protonix Iv) 40 mg IVPUSH DAILY [facility] Last Admin: 06/10/17 10:16 Dose: 40 mg Sodium Chloride ([place] Nasal [place] -) 2 spray NS TID PRN PRN Reason: NASAL CONGESTION Last Admin: 06/08/17 22:17 Dose: 2 sprays Assment # ARDS acute hypoxic respiratory failure intubated / sedated / paralyzed requiring 100% FiO2/ PEEP 15/ aim sats >88% management per pulmonary Abx / flu coverage per ID Plans for transfer - ECMO consideration [facility] # MICHAEL # rhabdo # elevated LFT - ischemic injury # elevated TNI -- demand ischemia # fever 103.5 ? central / follow up c/s contniue abx per ID # lactic acidosis Management per CC MD / case discussed with Dr Weeks hx of : HTN Asthma Smoker ETOH abuse anabolic steroid use ( distant ) Plans [facility] Mother and GF aware time spent with them > 30 min allowed to ask all questions and concerns Problem List - Problems (1) ARDS (adult respiratory distress syndrome) Code(s): J80 - ACUTE RESPIRATORY DISTRESS SYNDROME (2) Rhabdomyolysis Code(s): M62.82 - RHABDOMYOLYSIS (3) Abnormal LFTs Code(s): R94.5 - ABNORMAL RESULTS OF LIVER FUNCTION STUDIES (4) Acute respiratory failure Code(s): J96.00 - ACUTE RESPIRATORY FAILURE, UNSP W HYPOXIA OR HYPERCAPNIA (5) Hypoxia Code(s): R09.02 - HYPOXEMIA (6) Obesity Code(s): E66.9 - OBESITY, UNSPECIFIED (7) Pneumonia Code(s): J18.9 - PNEUMONIA, UNSPECIFIED ORGANISM (8) Substance abuse Code(s): F19.10 - OTHER PSYCHOACTIVE SUBSTANCE ABUSE, UNCOMPLICATED
[2017-06-10 13:57] LABS: ARTERIAL BLOOD GAS BASE EXCESS -12.3 meq/l (-2-2); ARTERIAL BLOOD GAS PCO2 88.1 mmHg (35-45)
[2017-06-10 14:01] LABS: ALLENS TEST POSITIVE
--- NOTE | 2017-06-10 14:04 | PN ---
Physical Exam: SUBJECTIVE: Patient seen and examined in ICU. Patient overnight was desaturating and uncomfortable. Patient was intubated/ sedated/paralyzed. Vent Settings: Rate 30, TV 400, FIO2 100%, PEEP 15 OBJECTIVE: Vital Signs Period Temp Pulse Resp BP Sys/Campoverde Pulse Ox Last 24 Hr 98.8 F-102.8 F 91-138 15-34 98-180/48-117 91-98 GENERAL: The patient is Intubated,sedated, paralyzed NECK: Trachea midline, full range of motion, supple. LUNGS: Breath sounds equal, Tachypneic, Bibasilar rhonchi HEART: tachycardic, S1, S2 without murmur, rub or gallop. ABDOMEN: Soft, nontender, nondistended, normoactive bowel sounds EXTREMITIES: 2+ pulses, warm, well-perfused, no edema. PSYCH: Normal mood, normal affect. SKIN: Warm, dry, normal turgor, no rashes or lesions noted Laboratory Results - last 24 hr 06/09/17 06/09/17 06/09/17 05:05 15:20 15:20 WBC RBC Hgb Hct MCV MCH MCHC RDW Plt Count 207 MPV Neutrophils % Lymphocytes % Puncture Site Patient Temperature ABG pH ABG pCO2 at Pt Temp ABG pO2 at Pt Temp ABG HCO3 ABG O2 Sat (Measured) ABG O2 Content ABG Base Excess Grant Test O2 Delivery Device Oxygen Flow Rate Vent Mode Vent Rate Mechanical Rate PEEP Pressure Support Vent Sodium Potassium Chloride Carbon Dioxide Anion Gap BUN Creatinine Creat Clearance w eGFR Random Glucose Calcium Phosphorus Magnesium Total Bilirubin AST ALT Alkaline Phosphatase Creatine Kinase 1251 H Creatine Kinase Index 0.1 CK-MB (CK-2) 1.358 Troponin I 0.29 H D C-Reactive Protein Total Protein Albumin Triglycerides 205 H Cholesterol 102 Total LDL Cholesterol 69 HDL Cholesterol 13 L 06/10/17 06/10/17 06/10/17 01:05 06:00 06:15 WBC RBC Hgb Hct MCV MCH MCHC RDW Plt Count MPV Neutrophils % Lymphocytes % Puncture Site Right radial Left radial Patient Temperature ABG pH 7.26 L D 7.24 L* ABG pCO2 at Pt Temp 51.7 H D 44.5 ABG pO2 at Pt Temp 112.0 H D 89.0 D ABG HCO3 22.3 18.5 L ABG O2 Sat (Measured) 96.7 94.4 ABG O2 Content 17.0 16.3 ABG Base Excess -4.6 L -8.2 L Grant Test Positive Positive O2 Delivery Device Mech Mech vent Oxygen Flow Rate 100% 100% Vent Mode A/c A/c Vent Rate 22 30 Mechanical Rate PEEP 15.0 15.0 Pressure Support Vent 400 400 Sodium Potassium Chloride Carbon Dioxide Anion Gap BUN Creatinine Creat Clearance w eGFR Random Glucose Calcium Phosphorus Magnesium Total Bilirubin AST ALT Alkaline Phosphatase Creatine Kinase Cancelled Creatine Kinase Index CK-MB (CK-2) Troponin I Cancelled C-Reactive Protein Total Protein Albumin Triglycerides Cholesterol Total LDL Cholesterol HDL Cholesterol 06/10/17 06/10/17 06/10/17 06:35 06:35 06:35 WBC 29.6 H D RBC 4.09 Hgb 12.6 Hct 39.1 MCV 95.5 MCH 30.9 MCHC 32.3 RDW 13.9 Plt Count 241 MPV 8.7 Neutrophils % No Result Required. Lymphocytes % No Result Required. Puncture Site Patient Temperature ABG pH ABG pCO2 at Pt Temp ABG pO2 at Pt Temp ABG HCO3 ABG O2 Sat (Measured) ABG O2 Content ABG Base Excess Grant Test O2 Delivery Device Oxygen Flow Rate Vent Mode Vent Rate Mechanical Rate PEEP Pressure Support Vent Sodium 138 Potassium 4.3 D Chloride 102 Carbon Dioxide 21 Anion Gap 15 BUN 24 H D Creatinine 2.4 H D Creat Clearance w eGFR 29.16 Random Glucose 136 H D Calcium 7.9 L Phosphorus 6.8 H D Magnesium 2.8 H D Total Bilirubin 1.2 H AST 163 H D ALT 139 H D Alkaline Phosphatase 193 H Creatine Kinase 884 H Creatine Kinase Index 0.3 CK-MB (CK-2) 3.25 Troponin I 1.79 H* D C-Reactive Protein 24.1 H Cancelled Total Protein 7.5 Albumin 1.9 L Triglycerides Cholesterol Total LDL Cholesterol HDL Cholesterol 06/10/17 11:55 WBC RBC Hgb Hct MCV MCH MCHC RDW Plt Count MPV Neutrophils % Lymphocytes % Puncture Site Left radial Patient Temperature 103.5 ABG pH 7.01 L* D ABG pCO2 at Pt Temp 88.1 H* D ABG pO2 at Pt Temp 99.5 ABG HCO3 21.2 L ABG O2 Sat (Measured) 93.2 ABG O2 Content 17.2 ABG Base Excess -12.3 L* Grant Test Positive O2 Delivery Device Other Oxygen Flow Rate 100% Vent Mode A/c Vent Rate 20 Mechanical Rate Espirit PEEP 15.0 Pressure Support Vent 380 Sodium Potassium Chloride Carbon Dioxide Anion Gap BUN Creatinine Creat Clearance w eGFR Random Glucose Calcium Phosphorus Magnesium Total Bilirubin AST ALT Alkaline Phosphatase Creatine Kinase Creatine Kinase Index CK-MB (CK-2) Troponin I C-Reactive Protein Total Protein Albumin Triglycerides Cholesterol Total LDL Cholesterol HDL Cholesterol Active Medications Generic Name Dose Route Start Last Admin Trade Name Freq PRN Reason Stop Dose Admin Acetaminophen 1,000 mg 06/09/17 15:30 06/10/17 09:42 Ofirmev Injection - IVPB 1,000 mg Q6H PRN Administration FEVER Chlorhexidine Gluconate 1 applic 06/07/17 22:00 06/09/17 21:34 Hibiclens For Decolonization - TP 1 applic HS JESE Administration Heparin Sodium (Porcine) 5,000 unit 06/10/17 10:00 06/10/17 10:16 Heparin - SQ 5,000 unit BID JESE Administration Levofloxacin 750 mg in 150 mls @ 150 mls/hr 06/07/17 18:30 06/09/17 17:36 Levaquin 750 Mg Premixed Ivpb - IVPB 150 mls/hr Q24H JESE Administration Propofol 1,000,000 mcg in 100 mls @ 7.973 mls/hr 06/10/17 00:15 06/10/17 11: 47 Diprivan - IVPB 50 mcg/kg/min TITR JESE 26.578 mls/hr Protocol Administration 15 MCG/KG/MIN Phenylephrine HCl 20,000 mcg/ 250 mls @ 75 mls/hr 06/10/17 01:00 06/10/17 11: 47 Sodium Chloride IVPB 60 mcg/min ASDIR JESE 45 mls/hr Protocol Administration 100 MCG/MIN Fentanyl 500 mcg/ Dextrose 100 mls @ 40 mls/hr 06/10/17 01:38 06/10/17 08:32 IVPB 06/11/17 01:14 30 mls/hr TITR JESE Administration Protocol 200 MCG/HR Vecuronium [place] 50 mg/ 250 mls @ 53.15 mls/hr 06/10/17 06:10 06/10/17 12: 23 Dextrose IVPB 2 mcg/kg/min TITR JESE 53.15 mls/hr 2 MCG/KG/MIN Administration Mupirocin 1 applic 06/07/17 22:00 06/10/17 10:19 Bactroban Ointment (For Decolonization) - NS 06/12/17 21:59 1 applic BID JESE Administration Oseltamivir Phosphate 75 mg 06/07/17 22:00 06/10/17 10:19 Tamiflu - PO 06/12/17 21:59 75 mg BID JESE Administration Pantoprazole Sodium 40 mg 06/10/17 10:00 06/10/17 10:16 Protonix Iv IVPUSH 40 mg DAILY JESE Administration Sodium Chloride 2 spray 06/08/17 20:07 06/08/17 22:17 [place] Nasal [place] - NS 2 sprays TID PRN Administration NASAL CONGESTION ASSESSMENT/PLAN: 47 year old M with pmh of HTN, asthma, and ETOH abuse presents with ARDS and acute hypoxic respiratory failure now intubated #Resp ARDS Acute hypoxic respiratory failure -Patient intubated -Transfer to [place] initiated/accepted -Keep plateau pressure <30 -Titrate FIO2 to maintain spo2 >88 -Will place central line today for cardiovascular support #Renal MICHAEL, improved -Monitor urine output, creatinine -Avoid nephrotoxic medications #ID ARDS Possible Influenza +/- lung consolidation -Continue vancomycin, levaquin, and tamiflu for influenza and lung consolidations #FEN/GI -No IVF -Replete K+, monitor BMP -NPO #PPx -SCDs for DVT ppx and heparin 5000 u sq bid -No GI ppx #Dispo Continue ICU level of care Visit type - Emergency Visit Emergency Visit: Yes ED Registration Date: 06/07/17 Care time: The patient presented to the Emergency Department on the above date and was hospitalized for further evaluation of their emergent condition. - New Patient This patient is new to me today: No - Critical Care Critical Care patient: Yes Total Critical Care Time (in minutes): 45 Critical Care Statement: The care of this patient involved high complexity decision making to prevent further life threatening deterioration of the patient 's condition and/or to evaluate & treat vital organ system(s) failure or risk of failure.
[2017-06-10 14:13] LABS: ARTERIAL BLOOD GAS pH 7.08 (7.35-7.45)
[2017-06-10 14:14] LABS: ARTERIAL BLD GAS O2 SATURATION 93.3 % (90-98.9); ARTERIAL BLOOD GAS BASE EXCESS -12.1 meq/l (-2-2); ARTERIAL BLOOD GAS PCO2 66.8 mmHg (35-45); ARTERIAL BLOOD GAS PO2 90.5 mmHg (80-100)
[2017-06-10] MEDS ORDERED: NOREPINEPHRINE BITARTRATE 8,000 MCG in DEXTROSE 5%-WATER - 492 ML IV SCH (14:15)
--- NOTE | 2017-06-10 14:20 | PROC ---
<Rahel Clay - Last Filed: 06/10/17 14:19> Central Line Insertion Indication: CVP Monitoring, Sepsis, Vasopressor Risks and Benefits Explained: Yes Consent on Chart: Yes (Family signed) Central Line: Triple Lumen Catheter Anesthesia: 1% Lidocaine Sterile Technique: Yes Ultrasound Guided Assistance: Yes Position: Right Internal Jugular Post Insertion: Yes: Chest X-Ray Ordered Sterile Dressing Applied: Yes <Israel Weeks MD - Last Filed: 06/10/17 15:10> Procedure Note Procedure: I supervised and was present during the entire procedure. Israel Weeks MD
[2017-06-10] MEDS ORDERED: SODIUM CHLORIDE 1,000 ML IV SCH (14:30)
[2017-06-10] MEDS ORDERED: SODIUM CHLORIDE 1,000 ML IV STA (14:33)
[2017-06-10 15:40] LABS: ARTERIAL BLD GAS O2 SATURATION 95.9 % (90-98.9); ARTERIAL BLOOD GAS BASE EXCESS -12.6 meq/l (-2-2); ARTERIAL BLOOD GAS PCO2 62.3 mmHg (35-45)
[2017-06-10 15:41] LABS: URINE APPEARANCE TURBID; URINE BILIRUBIN NEGATIVE (NEGATIVE); URINE BLOOD 2+ (NEGATIVE); URINE COLOR AMBER; URINE GLUCOSE (UA) NEGATIVE (NEGATIVE); URINE KETONE NEGATIVE (NEGATIVE); URINE LEUK ESTERASE NEGATIVE (NEGATIVE); URINE NITRITE NEGATIVE (NEGATIVE); URINE UROBILINOGEN NEGATIVE mg/dL (0.2-1.0)
[2017-06-10 15:44] LABS: URINE PROTEIN 3+ (NEGATIVE)
[2017-06-10 15:49] LABS: ARTERIAL BLOOD GAS pH 7.08 (7.35-7.45)
[2017-06-10 17:06] LABS: URINE BACTERIA RARE /hpf (NONE SEEN); URINE MUCUS RARE
[2017-06-10] MEDS: LEVOFLOXACIN 750 MG IVPB 750 MG/150 ML BAG IVPB SCH (17:19)
[2017-06-10] MEDS ORDERED: HEPARIN NA (PORCINE) 5,000 UNITS/ML 1ML VIAL IVPUSH ONE (17:51)
[2017-06-10] MEDS ORDERED: SODIUM BICARBONATE 8.4% 50 MEQ/50 ML DISP.SYRIN IVPUSH ONE (18:17)
[2017-06-10] MEDS ORDERED: CALCIUM GLUCONATE 10% - 1,000 MG/10 ML VIAL IVPB ONE (18:19)
[2017-06-11 07:12] VITALS: BP 108/84; PULSE 110; TEMP 99
== END 2017-06-10 20:10 | disposition short-term general hospital (02) | DRG 720 ==
LOC: JER 08:03 → JERBED 12:29 → JICU 19:49
PROVIDERS: ADMIT Family Medicine; ATTEND Family Medicine
PROC: 5A09357 Assistance with Respiratory Ventilation, Less than 24 Consecutive Hours, Continuous Positive Airway Pressure (ICD-10-PCS; 2017-06-07)
PROC: 5A1935Z Respiratory Ventilation, Less than 24 Consecutive Hours (ICD-10-PCS; principal; 2017-06-10)
PROC: 0BH18EZ Insertion of Endotracheal Airway into Trachea, Via Natural or Artificial Opening Endoscopic (ICD-10-PCS; 2017-06-10)
PROC: 0CJS8ZZ Inspection of Larynx, Via Natural or Artificial Opening Endoscopic (ICD-10-PCS; 2017-06-10)
PROC: 05HM33Z Insertion of Infusion Device into Right Internal Jugular Vein, Percutaneous Approach (ICD-10-PCS; 2017-06-10)
PROC: B513ZZA Fluoroscopy of Right Jugular Veins, Guidance (ICD-10-PCS; 2017-06-10)
PROC: B543ZZA Ultrasonography of Right Jugular Veins, Guidance (ICD-10-PCS; 2017-06-10)
DX: A41.9 Sepsis, unspecified organism (principal); J96.01 Acute respiratory failure with hypoxia; R65.21 Severe sepsis with septic shock; N17.9 Acute kidney failure, unspecified; J11.08 Influenza due to unidentified influenza virus with specified pneumonia; J12.9 Viral pneumonia, unspecified; E87.2 Acidosis; I24.8 Other forms of acute ischemic heart disease; M62.82 Rhabdomyolysis; E87.1 Hypo-osmolality and hyponatremia; R94.5 Abnormal results of liver function studies; F17.210 Nicotine dependence, cigarettes, uncomplicated; E66.9 Obesity, unspecified; Z68.31 Body mass index [BMI] 31.0-31.9, adult; I10 Essential (primary) hypertension; N28.9 Disorder of kidney and ureter, unspecified; I25.10 Atherosclerotic heart disease of native coronary artery without angina pectoris; E78.5 Hyperlipidemia, unspecified; J45.909 Unspecified asthma, uncomplicated; F10.10 Alcohol abuse, uncomplicated; Y90.0 Blood alcohol level of less than 20 mg/100 ml; R73.9 Hyperglycemia, unspecified; R00.0 Tachycardia, unspecified
CPT/HCPCS: 31500; 36415; 36600; 71045-TC; 71250-TC; 80053; 80061; 80074; 80307; 81003; 81015; 82140; 82375; 82436; 82550; 82553; 82570; 82803; 83050; 83605; 83721; 83735; 83880; 84100; 84133; 84300; 84443; 84484; 85025; 85027; 85610; 85730; 86140; 86713; 86850; 86900; 86901; 87040; 87070; 87077; 87086; 87186; 87205; 87389; 87420; 87804; 87899; 93005; 93010; 93306-TC; 94002; 99285-25; G0480; J1644